=== PATIENT | female | born 1950 | race Caucasian/White ===

== ENCOUNTER 2021-07-21 12:32 | Emergency (ER) | payer MEDICARE, OTHER ==
--- NOTE | 2021-07-21 14:02 | Ultrasound Report ---
PROCEDURE: Duplex Ext Veins Left INDICATIONS: LLE swelling, pain, h/o DVT TECHNIQUE: Real-time imaging, as well as color and pulse Doppler interrogation, were performed of the lower extr emity deep veins from the inguinal ligament to the popliteal fossa. COMPARISON: None. FINDINGS: The deep veins are normally compressible, and free of intraluminal thrombus. Color and pu lse Doppler demonstrate normal phasic intraluminal flow. There is normal augmentation response to di stal compression maneuver. IMPRESSION: No evidence of deep vein thrombosis involving the left lower extremity. Reviewed by: Yuki Flores MD, PhD on 07/21/2021 2:01 PM PDT Approved by: Yuki Flores MD, PhD on 07/21/2021 2:01 PM PDT Station ID: [id number]
--- NOTE | 2021-07-21 14:56 | ED Physician Documentation ---
PD HPI LOWER EXT INJURY - Stated complaint Stated Complaint: SOA,LEG PX AND SWELLING - Chief complaint Chief Complaint: Ext Problem - History obtained from History obtained from: Patient - History of Present Illness PD HPI LOW EXT INJURY LOCATION: Left, Lower leg, Calf Type of injury: Other (no noted injury. developing redness, swelling areas, with skin sores and weeping. went to walk in and referred to ER for U/S to eval for DVT.). No: Blunt / blow Where injury occurred: Home Timing - onset: How many days ago (several) Timing - duration: Days Timing - details: Gradual onset, Still present Worsened by: Palpating Associated symptoms: Swelling. No: Weakness, Numbness Similar symptoms before: Diagnosis (prior history of DVTs but did not have skin sores with that.) Recently seen: Clinic (did go to walk in today but referred to ER.) Review of Systems Constitutional: denies: Fever, Chills Nose: denies: Rhinorrhea / runny nose, Congestion Throat: denies: Sore throat Cardiac: denies: Chest pain / pressure Respiratory: denies: Dyspnea, Cough Skin: reports: Rash, Lesions PD PAST MEDICAL HISTORY - Past Medical History Cardiovascular: Hypertension, Deep vein thrombosis Respiratory: None Neuro: None Endocrine/Autoimmune: None - Present Medications Home Medications: Ambulatory Orders Medication Instructions Recorded Confirmed Albuterol Sulfate [Proair Hfa 1 - 2 puffs INH Q4H PRN 07/21/21 07/21/21 Inhaler] Bupropion HCl [Wellbutrin Xl] 300 mg PO DAILY 07/21/21 07/21/21 Chlorhexidine Gluconate [Hibiclens] 15 ml TP DAILY #236 ml 07/21/21 Doxycycline Hyclate 100 mg PO BID 7 Days #14 cap 07/21/21 Fluticasone/Salmeterol [Advair 1 each IH BID 07/21/21 07/21/21 250-50 Diskus] Furosemide [Lasix] 20 mg PO DAILY PRN 07/21/21 07/21/21 metFORMIN [Glucophage] 500 mg PO BIDWM 07/21/21 07/21/21 - Allergies Allergies/Adverse Reactions: Allergies Allergy/AdvReac Type Severity Reaction Status Date / Time No Known Drug Allergies Allergy Verified 07/21/21 12:43 PD ED PE NORMAL - Vitals Vital signs reviewed: Yes - General General: Alert and oriented X 3, No acute distress, Well developed/nourished - Cardiac Cardiac: RRR, No murmur - Respiratory Respiratory: Clear bilaterally - Derm Derm: Normal color, Warm and dry - Extremities Extremities: Other (left lower leg, mainly calf area but some laterally, with patches of red skin, with central small superficial ulcerations and some crusting, but not purulence per se. Couple of early blistera appearing spots. ) - Neuro Neuro: Alert and oriented X 3, No motor deficit, Normal speech Results - Vitals Vitals: Oxygen O2 Source Room air - Rads (name of study) venous duplex leg Radiology: Prelim report reviewed (no DVT), See rad report PD MEDICAL DECISION MAKING - ED course Complexity details: considered differential (patches of redness with superficial skin breakdown and mild crusting. No purulence per se. couple of small early blister appearing lesions. ), d/w patient Departure - Departure Disposition: 01 Home, Self Care Clinical Impression: Leg edema, left, Impetigo bullosa Condition: Stable Record reviewed to determine appropriate education?: Yes Follow-Up: Katiana Mustafa MD [Primary Care Provider] - Prescriptions: Doxycycline Hyclate 100 mg PO BID 7 Days #14 cap Chlorhexidine Gluconate [Hibiclens] 15 ml TP DAILY #236 ml Comments: Your ultrasound was negative without any blood clots seen. The scan sores and weeping look likely consistent with impetigo staph infection. I would treat it with chlorhexidine antiseptic wash daily with your showering or washing. Also doxycycline antibiotic twice daily for the next week. Resume your diuretic to help with the edema. Use an Otoniel wrap to help with the swelling until you are able to use your compression socks again as the sores heal. Recheck if not improving over the next several days to week. I transmitted your prescription to [facility] in [place]. Discharge Date/Time: 07/21/21 16:18
[2021-07-21] MEDS ORDERED: ACETAMINOPHEN 325 MG TABLET PO STA (15:13)
[2021-07-21] MEDS ORDERED: DOXYCYCLINE 100 MG TABLET PO STA (15:13)
[2021-07-21 16:16] VITALS: BP 138/74
== END 2021-07-21 16:18 | disposition home or self-care (01) ==
LOC: ED 12:32
DX: L01.03 Bullous impetigo (principal); R60.9 Edema, unspecified; I10 Essential (primary) hypertension; Z86.718 Personal history of other venous thrombosis and embolism
CPT/HCPCS: 93971; 99282; 99284; A9270

== ENCOUNTER 2021-08-18 12:20 | Outpatient (CLI) | payer MEDICARE, OTHER ==
[2021-08-18 17:50] LABS: BASOPHILS % (AUTO) 0.5 %; EOSINOPHILS # (AUTO) 0.2 10^3/uL (0.0-0.7); EOSINOPHILS % (AUTO) 2.1 %; HCT - HEMATOCRIT 40.6 % (37.0-47.0); HGB - HEMOGLOBIN 12.2 g/dL (12.0-16.0); LYMPHOCYTES # (AUTO) 1.6 10^3/uL (1.5-3.5); LYMPHOCYTES % (AUTO) 18.3 %; MEAN CORPUSCULAR HEMOGLOBIN 26.7 pg (27.0-31.0); MEAN CORPUSCULAR VOLUME 88.8 fL (81.0-99.0); MEAN PLATELET VOLUME 11.6 fL (7.9-10.8); MONOCYTES # (AUTO) 0.8 10^3/uL (0.0-1.0); MONOCYTES % (AUTO) 9.2 %; NEUTROPHILS # (AUTO) 5.9 10^3/uL (1.5-6.6); NEUTROPHILS % (AUTO) 69.7 %; PLT - PLATELET COUNT 172 10^3/uL (130-450); RED BLOOD COUNT 4.57 10^6/uL (4.20-5.40); RED CELL DISTRIBUTION WIDTH 14.7 % (12.0-15.0); WHITE BLOOD COUNT 8.5 x10^3/uL (4.8-10.8)
[2021-08-18 18:05] LABS: ALBUMIN/GLOBULIN RATIO 1.1 (1.0-2.2); ALKALINE PHOSPHATASE 62 IU/L (42-121); ALT ALANINE AMINOTRANSFERASE 19 IU/L (10-60); AST ASPARTATE AMINOTRANSFERASE 19 IU/L (10-42); BILIRUBIN,TOTAL 0.6 mg/dL (0.2-1.0); BUN - BLOOD UREA NITROGEN 19 mg/dL (6-20); CALCIUM 9.1 mg/dL (8.5-10.3); CARBON DIOXIDE - CO2 34 mmol/L (21-32); CHLORIDE 96 mmol/L (101-111); CHOL/HDL RATIO 3.7 (<4.4); CHOLESTEROL 207 mg/dL; CREATININE 0.6 mg/dL (0.4-1.0); GFR - MDRD 99 (>89); GLUCOSE 170 mg/dL (70-100); HDL CHOLESTEROL 56 mg/dL; LDL CHOLESTEROL,CALCULATED 123 mg/dL; LDL/HDL RATIO 2.2 (<4.4); MAGNESIUM 1.7 mg/dL (1.7-2.8); POTASSIUM 3.9 mmol/L (3.5-5.0); SODIUM 139 mmol/L (135-145); TOTAL PROTEIN 7.7 g/dL (6.7-8.2); TRIGLYCERIDES 138 mg/dL; VLDL CHOLESTEROL 28 mg/dL
[2021-08-18 18:18] LABS: THYROID STIMULATING HORMONE 1.36 uIU/mL (0.34-5.60)
[2021-08-18 19:59] LABS: ESTIMATED AVERAGE GLUCOSE 154 mg/dL (70-100)
== END 2021-08-18 12:21 | disposition home or self-care (01) ==
LOC: LAB.N 12:20
PROVIDERS: ATTEND Nurse Practitioner Family
DX: E11.65 Type 2 diabetes mellitus with hyperglycemia (principal); R03.0 Elevated blood-pressure reading, without diagnosis of hypertension; E55.9 Vitamin D deficiency, unspecified
CPT/HCPCS: 36415; 80053; 80061; 82306; 83036; 83721; 83735; 84443; 85025

== ENCOUNTER 2021-10-06 09:18 | Outpatient (CLI) | payer MEDICARE, OTHER | END 2021-10-06 09:19 | disposition home or self-care (01) | LOC: DI 09:18 | PROVIDERS: ATTEND Nurse Practitioner Family | DX: R06.09 Other forms of dyspnea (principal); I49.9 Cardiac arrhythmia, unspecified; I11.9 Hypertensive heart disease without heart failure; I49.1 Atrial premature depolarization | CPT/HCPCS: 93306 ==

== ENCOUNTER 2022-06-01 12:01 | Emergency (ER) | payer MEDICARE, OTHER ==
[2022-06-01 12:16] VITALS: BP 151/77
--- NOTE | 2022-06-01 13:37 | Ultrasound Report ---
PROCEDURE: Duplex Ext Veins Left INDICATIONS: LLE swelling TECHNIQUE: Real-time imaging, as well as color and pulse Doppler interrogation, were performed of the lower extr emity deep veins from the inguinal ligament to the popliteal fossa. COMPARISON: None. FINDINGS: The deep veins are normally compressible, and free of intraluminal thrombus. Color and pu lse Doppler demonstrate normal phasic intraluminal flow. There is normal augmentation response to di stal compression maneuver. IMPRESSION: No evidence of DVT in visualized left lower extremity veins. Reviewed by: Jayjay Jackman MD on 06/01/2022 1:36 PM PST Approved by: Jayjay Jackman MD on 06/01/2022 1:36 PM PST Station ID: [id number]
--- NOTE | 2022-06-01 13:45 | ED Physician Documentation ---
History of Present Illness - Stated complaint Stated Complaint: LFT LEG PX - Chief complaint Chief Complaint: Ext Problem - History obtained from History obtained from: Patient - History of Present Illness Timing: How many days ago (2) - Additonal information Additional information: 71-year-old Miranda Barger has a history of type 2 diabetes hypertension and peripheral venous stasis disease with chronic lymphedema. She has chronic postinflammatory hyperpigmentation of both lower extremities. She has a history of prior DVT. She has a history of a prior fracture of her left ankle which was surgically repaired and she has a drain wound over that ankle. She has had a bout of cellulitis recently and this appears to have improved or resolved and she is here today because she has some pain in the posterior aspect back of her calf over a specific area. She is worried about the potential of DVT or infection in the skin. She has been taking keflex as the wound on the ankle began to drain and this has improved. Review of Systems Constitutional: denies: Fever Nose: denies: Congestion Respiratory: denies: Cough GI: denies: Abdominal Pain, Vomiting, Diarrhea Musculoskeletal: reports: Extremity pain, Extremity swelling. 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 : None HEENT: None Psych: Depression Musculoskeletal: Fatigue - Past Surgical History Past Surgical History: Yes General: Cholecystectomy Ortho: Other /COATING MACHINE OPERATOR HELPER: section, Hysterectomy Cardiovascular: Other - Present Medications Home Medications: Ambulatory Orders Medication Instructions Recorded Confirmed Bupropion HCl [Wellbutrin Xl] 300 mg PO DAILY 07/21/21 10/27/21 Fluticasone/Salmeterol [Advair 1 each IH BID 07/21/21 09/01/21 250-50 Diskus] Furosemide [Lasix] 20 mg PO DAILY PRN 07/21/21 10/27/21 metFORMIN [Glucophage] 500 mg PO BIDWM 07/21/21 10/27/21 Biotin 1 tab PO DAILY 09/01/21 10/27/21 Cholecalciferol (Vitamin D3) 1 cap PO DAILY 09/01/21 10/27/21 [Vitamin D3] Tumeric/Ging/[place]/Oreg/Capryl 1 each PO DAILY 09/01/21 10/27/21 [Candicidal Capsule] Rosuvastatin Calcium [Crestor] 1 tab PO DAILY 12/08/21 12/08/21 - Allergies Allergies/Adverse Reactions: Allergies Allergy/AdvReac Type Severity Reaction Status Date / Time No Known Drug Allergies Allergy Verified 06/01/22 12:16 - Social History Does the pt smoke?: No Smoking Status: Never smoker Does the pt drink ETOH?: No Does the pt have substance abuse?: Yes - Immunizations Immunizations are current?: Yes PD ED PE NORMAL - Vitals Vital signs reviewed: Yes (hypertensive ) - General General: Alert and oriented X 3, No acute distress, Well developed/nourished - HEENT HEENT: Atraumatic, PERRL, EOMI - Respiratory Respiratory: No respiratory distress - Derm Derm: Normal color, Warm and dry, No rash - Extremities Extremities: Other (Bilaterally there is edema to the lower extremities that is nonpitting she does have postinflammatory hyperpigmentation worse on the left than the right. 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 She has a bandage over the medial aspect of her ankle this is removed to reveal an area of skin without acute inflammation that appears to be healing. Over the posterior calf there is an area 1-1/2 cm of skin breakdown without drainage or surrounding erythema. The area is sensitive to touch. Results - Vitals Vitals: Vital Signs - 24 hr 06/01/22 12:08 Temperature 36 C L Heart Rate 68 Respiratory 18 Rate Blood Pressure 151/77 H O2 Saturation 93 Oxygen O2 Source Room air - Labs Labs: Microbiology 06/01/22 13:30 Wound Culture - Preliminary Leg - Left - Rads (name of study) LLE venous duplex Radiology: Prelim report reviewed (No evidence of DVT in the visualized left lower extremity veins.), EMP read indepedently, See rad report PD Medical Decision Making - ED course Complexity details: reviewed old records, reviewed results, re-evaluated patient, considered differential, d/w patient ED course: 71-year-old Miranda Barger has a new area on the posterior aspect of her calf that is specifically tender and has some skin breakdown. There is not a ready explanation of how this may have occurred but it does not look infected. The areas the patient was indicating appeared infected appear improved at this time. There is no surrounding erythema. I do not believe there is any failure of the patient's outpatient use of Keflex for this. We did do a culture of the area and we obtained a venous duplex exam again demonstrated no evidence of deep venous thrombosis. Departure - Departure Disposition: 01 Home, Self Care Clinical Impression: Chronic venous insufficiency Non-pressure ulcer of left lower extremity Qualifiers: Non-pressure ulcer stage: limited to breakdown of skin Qualified Code(s): L97.921 - Non-pressure chronic ulcer of unspecified part of left lower leg limited to breakdown of skin Condition: Stable Instructions: Chronic Venous Insufficiency Ulcer, ED Ulcer Venous Leg Follow-Up: Jodi Caldera ARNP [Primary Care Provider] - Comments: Miranda, today it looks like there is a new ulceration on the back of your calf. I do not see any sign of acute infection with this but a culture has been obtained. Follow-up with the wound clinic as planned. Today there is no evidence of deep venous thrombosis. Discharge Date/Time: 06/01/22 13:51
== END 2022-06-01 13:51 | disposition home or self-care (01) ==
LOC: ED 12:01
DX: I87.2 Venous insufficiency (chronic) (peripheral) (principal); L97.921 Non-pressure chronic ulcer of unspecified part of left lower leg limited to breakdown of skin; I10 Essential (primary) hypertension; Z86.718 Personal history of other venous thrombosis and embolism; Z79.899 Other long term (current) drug therapy; Z79.84 Long term (current) use of oral hypoglycemic drugs; Z79.51 Long term (current) use of inhaled steroids
CPT/HCPCS: 87070; 87077; 87181; 87205; 99284

== ENCOUNTER 2022-06-18 12:45 | Outpatient (CLI) | payer MEDICARE, OTHER ==
[2022-06-18 17:47] LABS: BASOPHILS # (AUTO) 0.1 10^3/uL (0.0-0.1); BASOPHILS % (AUTO) 0.6 %; EOSINOPHILS # (AUTO) 0.2 10^3/uL (0.0-0.7); EOSINOPHILS % (AUTO) 2.2 %; HCT - HEMATOCRIT 41.8 % (37.0-47.0); HGB - HEMOGLOBIN 12.1 g/dL (12.0-16.0); LYMPHOCYTES % (AUTO) 22.9 %; MEAN CORPUSCULAR HEMOGLOBIN 26.2 pg (27.0-31.0); MEAN CORPUSCULAR HGB CONC 28.9 g/dL (32.0-36.0); MEAN CORPUSCULAR VOLUME 90.7 fL (81.0-99.0); MEAN PLATELET VOLUME 10.9 fL (7.9-10.8); MONOCYTES # (AUTO) 0.8 10^3/uL (0.0-1.0); MONOCYTES % (AUTO) 9.2 %; NEUTROPHILS # (AUTO) 5.5 10^3/uL (1.5-6.6); NEUTROPHILS % (AUTO) 64.7 %; PLT - PLATELET COUNT 179 10^3/uL (130-450); RED BLOOD COUNT 4.61 10^6/uL (4.20-5.40); RED CELL DISTRIBUTION WIDTH 14.5 % (12.0-15.0); WHITE BLOOD COUNT 8.6 x10^3/uL (4.8-10.8)
[2022-06-18 17:53] LABS: ALBUMIN 3.9 g/dL (3.2-5.5); ALKALINE PHOSPHATASE 66 IU/L (42-121); ALT ALANINE AMINOTRANSFERASE 15 IU/L (10-60); AST ASPARTATE AMINOTRANSFERASE 16 IU/L (10-42); BILIRUBIN,TOTAL 0.5 mg/dL (0.2-1.0); BUN - BLOOD UREA NITROGEN 14 mg/dL (6-20); CALCIUM 9.5 mg/dL (8.5-10.3); CARBON DIOXIDE - CO2 36 mmol/L (21-32); CHLORIDE 98 mmol/L (101-111); CHOLESTEROL 170 mg/dL; CREATININE 0.5 mg/dL (0.4-1.0); GFR - MDRD 122 (>89); GLUCOSE 110 mg/dL (70-100); HDL CHOLESTEROL 57 mg/dL; LDL CHOLESTEROL,CALCULATED 104 mg/dL; LDL/HDL RATIO 1.8 (<4.4); POTASSIUM 4.7 mmol/L (3.5-5.0); SODIUM 142 mmol/L (135-145); TOTAL PROTEIN 7.9 g/dL (6.7-8.2); TRIGLYCERIDES 47 mg/dL; VLDL CHOLESTEROL 9 mg/dL
[2022-06-18 18:02] LABS: THYROID STIMULATING HORMONE 1.37 uIU/mL (0.34-5.60)
[2022-06-18 20:08] LABS: ESTIMATED AVERAGE GLUCOSE 151 mg/dL (70-100); HEMOGLOBIN A1c% 6.9 % (4.27-6.07)
== END 2022-06-18 12:46 | disposition home or self-care (01) ==
LOC: LAB.N 12:45
PROVIDERS: ATTEND Nurse Practitioner Family
DX: E78.5 Hyperlipidemia, unspecified (principal); E11.65 Type 2 diabetes mellitus with hyperglycemia; Z79.899 Other long term (current) drug therapy
CPT/HCPCS: 36415; 80053; 80061; 83036; 83721; 84443; 85025

== ENCOUNTER 2022-07-21 17:20 | Outpatient (CLI) | payer MEDICARE, OTHER ==
[2022-07-21 17:53] LABS: ABG HCO3 32.2 mmol/L (22.0-26.0); ABG PCO2 50 mmHg (34-45); ABG PH 7.43 (7.35-7.45); ABG PO2 61 mmHg (80-100)
[2022-07-21 17:54] LABS: ABG BASE EXCESS 6.6 mmol/L (-2.0-3.0); ABG OXYGEN SATURATION 92 % (94-98); ABG TCO2 33.7 MMOL/L (21.0-29.0); ALLEN TEST POSITIVE
== END 2022-07-21 17:21 | disposition home or self-care (01) ==
LOC: RT 17:20
PROVIDERS: ATTEND Internal Medicine Pulmonary Disease
DX: I27.20 Pulmonary hypertension, unspecified (principal); E66.2 Morbid (severe) obesity with alveolar hypoventilation; R60.0 Localized edema
CPT/HCPCS: 36600; 82803

== ENCOUNTER 2022-08-03 22:43 | Outpatient (CLI) | payer MEDICARE, OTHER ==
--- NOTE | 2022-08-04 16:11 | Ultrasound Report ---
PROCEDURE: Ext Limited Non Vascular INDICATIONS: SWELLING OF ARM TECHNIQUE: Real-time scanning was performed of the right, with image documentation. COMPARISON: None. FINDINGS: Sonographic images of the proximal right upper extremity demonstrate no mass lesion, focal fluid collection or area of architectural distortion within the area of palpable concern IMPRESSION: Unremarkable exam. If concern persists, CT or MRI is recommended. Reviewed by: Adelaida Becker MD on 08/04/2022 4:09 PM PDT Approved by: Adelaida Becker MD on 08/04/2022 4:09 PM PDT Station ID: [id number]
== END 2022-08-03 22:44 | disposition home or self-care (01) ==
LOC: DI 22:43
PROVIDERS: ATTEND Nurse Practitioner Family
DX: R22.30 Localized swelling, mass and lump, unspecified upper limb (principal)

== ENCOUNTER 2022-12-07 19:24 | Inpatient (IN) | payer MEDICARE, OTHER ==
--- NOTE | 2022-12-07 20:21 | ED Physician Documentation ---
PD HPI DYSPNEA - Stated complaint Stated Complaint: SOA - Chief complaint Chief Complaint: Resp - History obtained from History obtained from: Patient - Additional information Additional information: HPI from patient. Patient complains of dyspnea, "my sats were down to the 50s" (per patient). Patient measures her pulse ox/saturations on a regular basis, but due to dyspnea since this morning, she was monitoring more closely today. She says that, on an average day, her pulse ox tends to be 89 to 91% on room air. She does use 3 L nasal cannula oxygen but only at night when asleep. She is not certain if she has a specific pulmonary diagnosis; diagnosis of COPD has been entertained but not clearly made. She says she had surgery in childhood for pectus excavatum, and has had intermittent respiratory problems since then. Dyspnea worse with exertion She has history of DVTs, both provoked and unprovoked. She has recessive Leiden factor V deficiency. Patient took a home COVID test earlier today and result was negative. She says she takes Lasix as needed, prescribed as 3 times a week as needed, but has been avoiding this of late. Only on discussion of review of systems did other symptoms come up. When asked if she has been having any chest pain, she says she has been having some mild, intermittent right-sided pleuritic chest pain. She has bilateral lower extremity edema which is chronic. Also notes few weeks of intermittent right flank pain that radiates to her right lower abdomen and right groin, "UTI symptoms" (per patient), "off-and-on" over past 1 to 2 weeks. The UTI symptoms are dysuria, frequency, urgency, and a strong odor to the urine. Review of Systems Constitutional: denies: Fever, Chills, Sweats Cardiac: reports: Chest pain / pressure, Pedal edema. denies: Palpitations Respiratory: reports: Dyspnea, Wheezing. denies: Cough, Hemoptysis GI: reports: Abdominal Pain. denies: Nausea, Vomiting : reports: Dysuria, Frequency. 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 : None HEENT: None Psych: Depression Musculoskeletal: Fatigue - Past Surgical History Past Surgical History: Yes General: Cholecystectomy Ortho: Other /SOFTWARE RELEASE ENGINEER: section, Hysterectomy Cardiovascular: Other - Present Medications Home Medications: Ambulatory Orders Medication Instructions Recorded Confirmed Fluticasone/Salmeterol [Advair 1 each IH BID 07/21/21 08/23/22 250-50 Diskus] Furosemide [Lasix] 20 mg PO DAILY PRN 07/21/21 08/23/22 buPROPion HCL [Wellbutrin Xl] 300 mg PO DAILY 07/21/21 08/23/22 metFORMIN [Glucophage] 500 mg PO DAILY 07/21/21 08/23/22 Biotin 1 tab PO DAILY 09/01/21 08/23/22 Tumeric/Ging/[place]/Oreg/Capryl 1 each PO DAILY 09/01/21 08/23/22 [Candicidal Capsule] Rosuvastatin Calcium [Crestor] 1 tab PO DAILY 12/08/21 08/23/22 metFORMIN [Glucophage] 1,000 mg PO QPM 08/23/22 08/23/22 - Allergies Allergies/Adverse Reactions: Allergies Allergy/AdvReac Type Severity Reaction Status Date / Time No Known Drug Allergies Allergy Verified 12/07/22 19:46 - Social History Does the pt smoke?: No Smoking Status: Never smoker Does the pt drink ETOH?: No Does the pt have substance abuse?: Yes - Immunizations Immunizations are current?: Yes PD ED PE NORMAL - Vitals Vital signs reviewed: Yes - General General: Alert and oriented X 3, No acute distress, Well developed/nourished - Neck Neck: Supple, no meningeal sign - Cardiac Cardiac: RRR, No murmur - Respiratory Respiratory: No respiratory distress - Abdomen Abdomen: Soft, Non tender, Non distended - Back Back: No CVA TTP - Derm Derm: Normal color, Warm and dry PD ED PE EXPANDED - Respiratory Respiratory: Wheezing (bilateral end-expiratory wheeze; bilateral crackles more pronounced in mid/upper lung beltran than bases), Decreased breath sounds - Extremities Extremities: Pedal edema bilateral (3+ bilateral nonpitting edema) Results - Vitals Vitals: Vital Signs - 24 hr 12/07/22 12/07/22 12/07/22 19:28 19:45 20:00 Temperature 36.6 C Heart Rate 96 87 88 Respiratory 18 20 24 Rate Blood Pressure 122/106 H 158/92 H O2 Saturation 75 L 94 94 If not protocol 5 5 : Oxygen Flow, liters/minute 12/07/22 12/07/22 12/07/22 20:30 20:41 21:00 Temperature Heart Rate 85 82 80 Respiratory 23 28 H 21 Rate Blood Pressure 165/96 H 165/96 H 162/94 H O2 Saturation 97 95 94 If not protocol 5 5 : Oxygen Flow, liters/minute 12/07/22 12/07/22 12/07/22 21:10 21:14 21:30 Temperature Heart Rate 85 79 Respiratory 20 26 H Rate Blood Pressure 163/97 H O2 Saturation 95 94 If not protocol 4 3.5 4 : Oxygen Flow, liters/minute 12/07/22 12/07/22 12/07/22 21:32 21:33 22:00 Temperature Heart Rate 81 Respiratory 21 Rate Blood Pressure 162/82 H O2 Saturation 84 L 99 95 If not protocol 4 4 4 : Oxygen Flow, liters/minute 12/07/22 12/07/22 12/08/22 23:40 23:47 00:00 Temperature Heart Rate 74 73 Respiratory 18 20 18 Rate Blood Pressure 148/80 H 148/80 H O2 Saturation 100 99 If not protocol 4 : Oxygen Flow, liters/minute 12/08/22 12/08/22 12/08/22 00:30 01:00 02:44 Temperature Heart Rate 81 77 64 Respiratory 22 16 16 Rate Blood Pressure 119/82 H 125/78 135/82 H O2 Saturation 95 93 98 If not protocol 5 3.5 : Oxygen Flow, liters/minute Oxygen O2 Source Nasal cannula Oxygen Flow Rate 5 - EKG (time done) No standard instances EKG releavant findings:: EKG personally interpreted by author of this note. Relevant findings are: Rate: Rate (enter#) (83) Rhythm: NSR [place]: Normal QRS: Normal Ischemia: Normal ST segments, T wave inversion (III, flat aVF) Other comments: Other comments (PAC) - Labs Labs: Microbiology 12/07/22 21:32 Urine Culture - Preliminary Urine,Clean Catch Laboratory Tests 12/07/22 12/07/22 12/07/22 20:59 20:59 20:59 WBC 8.7 RBC 4.44 Hgb 11.9 L Hct 41.9 MCV 94.4 MCH 26.8 L MCHC 28.4 L RDW 15.9 H Plt Count 206 MPV 9.0 Neut # (Auto) 6.5 Lymph # (Auto) 1.3 L [place] # (Auto) 0.7 Eos # (Auto) 0.2 Baso # (Auto) 0.0 Absolute Nucleated RBC 0.00 Nucleated RBC % 0.0 Manual Slide Review Indicated Platelet Estimate NORMAL (130-450,000) Platelet Morphology NORMAL APPEARANCE RBC Morph Micro Appear 1+ HYPOCHROMASIA Sodium 140 Potassium 4.1 Chloride 96 L Carbon Dioxide 36 H Anion Gap 8.0 BUN 15 Creatinine 0.6 Estimated GFR (MDRD) 99 Glucose 113 H Calcium 8.3 L Total Bilirubin 0.5 AST 16 ALT 16 Alkaline Phosphatase 67 Troponin I High Sens 24.2 H* B-Natriuretic Peptide 123 H Total Protein 6.9 Albumin 3.7 Globulin 3.2 Albumin/Globulin Ratio 1.2 Lipase 25 Urine Color Urine Clarity Urine pH Ur Specific Hines Urine Protein Urine Glucose (UA) Urine Ketones Urine Occult Blood Urine Nitrite Urine Bilirubin Urine Urobilinogen Ur Leukocyte Esterase Urine RBC Urine WBC Ur Squamous Epith Cells Urine Bacteria Ur Microscopic Review Urine Culture Comments Nasal Adenovirus (PCR) Nasal B. parapertussis DNA (PCR) Nasal Coronavir 229E PCR Nasal Coronavir HKU1 PCR Nasal Coronavir NL63 PCR Nasal Coronavir OC43 PCR Nasal Enterovir/Rhinovir PCR Nasal Influenza B PCR Nasal Influenza A PCR Nasal Parainfluen 1 PCR Nasal Parainfluen 2 PCR Nasal Parainfluen 3 PCR Nasal Parainfluen 4 PCR Nasal RSV (PCR) Nasal B.pertussis DNA PCR Nasal C.pneumoniae (PCR) [place] Human Metapneumo PCR Nasal M.pneumoniae (PCR) Nasal SARS-CoV-2 (PCR) 12/07/22 12/07/22 12/07/22 20:59 21:32 23:55 WBC RBC Hgb Hct MCV MCH MCHC RDW Plt Count MPV Neut # (Auto) Lymph # (Auto) [place] # (Auto) Eos # (Auto) Baso # (Auto) Absolute Nucleated RBC Nucleated RBC % Manual Slide Review Platelet Estimate Platelet Morphology RBC Morph Micro Appear Sodium Potassium Chloride Carbon Dioxide Anion Gap BUN Creatinine Estimated GFR (MDRD) Glucose Calcium Total Bilirubin AST ALT Alkaline Phosphatase Troponin I High Sens 21.8 H* B-Natriuretic Peptide Total Protein Albumin Globulin Albumin/Globulin Ratio Lipase Urine Color YELLOW Urine Clarity CLOUDY Urine pH 5.5 Ur Specific [place] >=1.030 H Urine Protein 30 H Urine Glucose (UA) NEGATIVE Urine Ketones NEGATIVE Urine Occult Blood MODERATE H Urine Nitrite POSITIVE H Urine Bilirubin NEGATIVE Urine Urobilinogen 0.2 (NORMAL) Ur Leukocyte Esterase SMALL H Urine RBC 11-25 H Urine WBC >25 H Ur Squamous Epith Cells FEW Squamous Urine Bacteria Many H Ur Microscopic Review INDICATED Urine Culture Comments INDICATED Nasal Adenovirus (PCR) NOT DETECTED Nasal B. parapertussis DNA (PCR) NOT DETECTED Nasal Coronavir 229E PCR NOT DETECTED Nasal Coronavir HKU1 PCR NOT DETECTED Nasal Coronavir NL63 PCR NOT DETECTED Nasal Coronavir OC43 PCR NOT DETECTED Nasal Enterovir/Rhinovir PCR NOT DETECTED Nasal Influenza B PCR NOT DETECTED Nasal Influenza A PCR NOT DETECTED Nasal Parainfluen 1 PCR NOT DETECTED Nasal Parainfluen 2 PCR NOT DETECTED Nasal Parainfluen 3 PCR NOT DETECTED Nasal Parainfluen 4 PCR NOT DETECTED Nasal RSV (PCR) NOT DETECTED Nasal B.pertussis DNA PCR NOT DETECTED Nasal C.pneumoniae (PCR) NOT DETECTED [place] Human Metapneumo PCR NOT DETECTED Nasal M.pneumoniae (PCR) NOT DETECTED Nasal SARS-CoV-2 (PCR) NOT DETECTED - Rads (name of study) CTA chest Relevant Findings:: Prelim report reviewed, See rad report PD Medical Decision Making - ED course Complexity details: reviewed results, re-evaluated patient, considered differential, d/w patient ED course: In triage, patient's pulse ox (room air) was 77% and ED RN tells me she was visibly dyspneic. unremarkable CBC (hgb 11.9), ER abdominal panel. hs-cTn mildly elevated (24.2) with decrease on repeat (21.8). No concerning EKG findings. Respiratory panel negative for viruses tested including COVID, influenza. UA result is strongly s/o UTI for which she is given 1 gram IV rocephin. CTA chest negative for PE but notable findings (per radiologist's reading) include moderate pulmonary edema, small right pleural effusion, and incidental finding of bilateral (L>R) prominent axillary nodes. She is given duoneb and 60mg IV lasix early in stay. During ED stay, she had significant UO (approximately 1,500 cc). She reported feeling improved after diuresis and the duoneb. Because she was starting to get tired , 3 liters [place] oxygen placed as she says she uses HS, and this maintained saturations in lower 90s. However, simply having patient use bedside commode resulted in rapid decrease to upper 60s, pulse ox with good pleth, gradually improved back to low 90s once back in bed. After several hours in ED , I had ED RN stand patient at bedside with oxygen still on at 3 liters and then to have patient take a few steps next to the bed with oxygen removed; this resulted in rapid desaturation to 72% and patient had significant dyspnea (this is documented under "patient care" by ED RN at 03:48). Patient says the desaturation and the dyspnea are far from her baseline and thus, at this point, I contacted telehealth for admit to [facility] for further observation, testing, and treatment as indicated. Departure - Departure Disposition: [facility] DC/Xfer Clinical Impression: Lymphedema, Hypoxia Pulmonary edema Qualifiers: Chronicity: acute Qualified Code(s): J81.0 - Acute pulmonary edema Dyspnea Qualifiers: Dyspnea type: shortness of breath Qualified Code(s): R06.02 - Shortness of breath; R06.00 - Dyspnea, unspecified; R06.01 - Orthopnea Condition: Stable Discharge Date/Time: 12/08/22 05:40
[2022-12-07] MEDS ORDERED: IPRATROPIUM/ALBUTEROL 3 ML NEB INH STA (20:48)
[2022-12-07 21:14] LABS: BASOPHILS % (AUTO) 0.5 %; EOSINOPHILS # (AUTO) 0.2 10^3/uL (0.0-0.7); EOSINOPHILS % (AUTO) 1.7 %; HCT - HEMATOCRIT 41.9 % (37.0-47.0); HGB - HEMOGLOBIN 11.9 g/dL (12.0-16.0); LYMPHOCYTES # (AUTO) 1.3 10^3/uL (1.5-3.5); LYMPHOCYTES % (AUTO) 14.4 %; MEAN CORPUSCULAR HEMOGLOBIN 26.8 pg (27.0-31.0); MEAN CORPUSCULAR HGB CONC 28.4 g/dL (32.0-36.0); MEAN CORPUSCULAR VOLUME 94.4 fL (81.0-99.0); MONOCYTES # (AUTO) 0.7 10^3/uL (0.0-1.0); MONOCYTES % (AUTO) 8.4 %; NEUTROPHILS # (AUTO) 6.5 10^3/uL (1.5-6.6); NEUTROPHILS % (AUTO) 74.8 %; PLT - PLATELET COUNT 206 10^3/uL (130-450); RED BLOOD COUNT 4.44 10^6/uL (4.20-5.40); RED CELL DISTRIBUTION WIDTH 15.9 % (12.0-15.0); WHITE BLOOD COUNT 8.7 x10^3/uL (4.8-10.8)
[2022-12-07 21:26] LABS: ALBUMIN 3.7 g/dL (3.2-5.5); ALBUMIN/GLOBULIN RATIO 1.2 (1.0-2.2); BILIRUBIN,TOTAL 0.5 mg/dL (0.2-1.0); CALCIUM 8.3 mg/dL (8.5-10.3); CREATININE 0.6 mg/dL (0.4-1.0); POTASSIUM 4.1 mmol/L (3.5-5.0); TOTAL PROTEIN 6.9 g/dL (6.7-8.2)
[2022-12-07 21:34] LABS: PLATELET ESTIMATE, MANUAL NORMAL (130-450,000) (NORMAL); PLATELET MORPHOLOGY NORMAL APPEARANCE (NORMAL); SLIDE REVIEW? Indicated
[2022-12-07 21:37] LABS: BILIRUBIN,URINE NEGATIVE (NEGATIVE); GLUCOSE, URINE (UA) NEGATIVE (NEGATIVE); KETONES,URINE (UA) NEGATIVE (NEGATIVE); LEUKOCYTE ESTERASE, URINE SMALL (NEGATIVE); NITRITE,URINE POSITIVE (NEGATIVE); OCCULT BLOOD,URINE MODERATE (NEGATIVE); PH,URINE 5.5 PH (5.0-7.5); PROTEIN,URINE 30 mg/dL (NEGATIVE); UROBILINOGEN,URINE 0.2 (NORMAL) E.U./dL (NORMAL)
[2022-12-07 21:46] LABS: BACTERIA,URINE Many /HPF (None Seen); CLARITY,URINE CLOUDY (CLEAR); SQUAMOUS EPITHELIAL CELL,UR FEW Squamous (<= Few); WBC,URINE >25 /HPF (0-5)
[2022-12-07 22:03] LABS: CORONAVIRUS 229E-RESP PCR NOT DETECTED; CORONAVIRUS HKU1-RESP PCR NOT DETECTED; CORONAVIRUS NL63-RESP PCR NOT DETECTED; CORONAVIRUS OC43-RESP PCR NOT DETECTED; HUMAN METAPNEUMOVIRUS NOT DETECTED; INFLUENZA A- RESP PCR PANEL NOT DETECTED; RHINOVIRUS/ENTEROVIRUS NOT DETECTED; SARS-CoV-2 -RESP PCR PANEL NOT DETECTED
[2022-12-07 22:04] LABS: B. PARAPERTUSSIS- RESP PCR PAN NOT DETECTED; B. PERTUSSIS- RESP PCR PANEL NOT DETECTED; C. PNEUMONIAE- RESP PCR PANEL NOT DETECTED; INFLUENZA B - RESP PCR PANEL NOT DETECTED; M. PNEUMONIAE- RESP PCR PANEL NOT DETECTED; PARAINFLUENZA VIRUS 1 NOT DETECTED; PARAINFLUENZA VIRUS 2 NOT DETECTED; PARAINFLUENZA VIRUS 3 NOT DETECTED; PARAINFLUENZA VIRUS 4 NOT DETECTED; RSV- RESP PCR PANEL NOT DETECTED
[2022-12-07 22:26] LABS: TROPONIN I HIGH SENSITIVITY 24.2 ng/L (2.3-14.8)
--- NOTE | 2022-12-07 23:20 | CT Report ---
PROCEDURE: ANGIO CHEST W/WO INDICATIONS: dyspnea, hypoxia, pleuritic chest pain CONTRAST: Omni 300 100ml TECHNIQUE: After the administration of intravenous contrast, 2 mm axial images were acquired from the pulmonary apices to the posterior costophrenic angles during the arterial phase. In addition, 1 mm lung kernel and 5 mm soft tissue kernel reconstructions were performed. 3-dimensional coronal oblique maximum int ensity projection (MIP) reformats, 8 mm axial MIP, and 5 mm coronal and sagittal MPR reformats were t hen performed through the thorax. For radiation dose reduction, the following was used: automated exp osure control, adjustment of mA and/or kV according to patient size. COMPARISON: None FINDINGS: Image quality: Suboptimal due to motion artifact, particularly in the lung bases. Large vessels: No filling defects within the opacified pulmonary arteries, accounting for motion and contrast timing. No evidence of acute aortic syndrome or aortic aneurysm. Dilated pulmonary arteries . Lungs and pleura: No consolidation. Small right pleural effusion with right basilar atelectasis. Smoo th interstitial thickening and bronchial thickening, with central groundglass. No suspicious pulmonar y nodules which require follow up. Calcified granuloma in the right lower lobe. Mediastinum: Heart size is enlarged. No pericardial effusion. No large vessel abnormality. No mediast inal adenopathy by size criteria. Small hiatal hernia. Chest wall and lower neck: Thyroid is unremarkable. Prominent axillary lymph nodes, left greater than right. No breast mass visualized. Bones: No aggressive osseous abnormality. Upper Abdomen: Unremarkable. IMPRESSION: Suboptimal due to motion artifact, particularly in the lung bases. No clinically significant pulmonar y embolus to the proximal segmental level. Moderate pulmonary edema. Small right pleural effusion. Prominent axillary lymph nodes, left greater than right. Recommend further workup at a diagnostic [facility]. Reviewed by: Shashank Medina on 12/07/2022 11:18 PM PDT Approved by: Shashank Medina on 12/07/2022 11:18 PM PDT Station ID: [id number]
[2022-12-07] MEDS ORDERED: FUROSEMIDE 40 MG/4 ML VIAL IVP STA (23:39)
[2022-12-08] MEDS ORDERED: iohexoL-300 100 ML VIAL IVP ONE (00:39)
[2022-12-08] MEDS ORDERED: cefTRIAXone 1 GM in SODIUM CHLORIDE 0.9% MINIBAG 100 ML IV STA (02:11)
[2022-12-08] MEDS ORDERED: cefTRIAXone 1 GM VIAL ONE (02:38)
[2022-12-08] MEDS ORDERED: ONDANSETRON 4 MG/2 ML VIAL IVP PRN (04:15)
[2022-12-08] MEDS ORDERED: PROMETHAZINE 25 MG/1 ML VIAL IM PRN (04:15)
[2022-12-08] MEDS ORDERED: SODIUM CHLORIDE FLUSH 0.9% 10 ML SYRINGE IVP PRN (04:15)
--- NOTE | 2022-12-08 04:52 | HISTORY & PHYSICAL EXAMINATION ---
Chief Complaint - Chief Complaint Chief Complaint: SOB History of Present Illness - Admitted From Admitted From:: ED - History Obtained From Records Reviewed: Patient, ED staff, and History obtained from: Patient Exam Limitations: Tele medicine - History of Present Illness HPI Comment/Other: 72F c CRISTINE on Bipap with nighttime O2 support who p/w dyspnea with exertion for the past couple of days. Patient noted concurrently worsening swelling in BLE and orthopnea. She states right sided chest pain. No fever. No sore throat. No n/v/d. no dysuria. She mentions not being compliant with her Lasix for her leg swelling. She has not been told of heart failure. she was told that she has right sided heart disease. 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 : reports: None HEENT: reports: None Psych: reports: Depression Musculoskeletal: reports: Fatigue MRSA Hx?: No - Past Surgical History General: reports: Cholecystectomy Ortho: reports: Other /MOTOR COACH OPERATOR: reports: section, Hysterectomy Cardiovascular: reports: Other Meds/Allgy - Home Medications Home Medications: Ambulatory Orders Medication Instructions Recorded Confirmed Fluticasone/Salmeterol [Advair 1 each IH BID 07/21/21 08/23/22 250-50 Diskus] Furosemide [Lasix] 20 mg PO DAILY PRN 07/21/21 08/23/22 buPROPion HCL [Wellbutrin Xl] 300 mg PO DAILY 07/21/21 08/23/22 metFORMIN [Glucophage] 500 mg PO DAILY 07/21/21 08/23/22 Biotin 1 tab PO DAILY 09/01/21 08/23/22 Cholecalciferol (Vitamin D3) 1 cap PO DAILY 09/01/21 08/23/22 [Vitamin D3] Tumeric/Ging/[place]/Oreg/Capryl 1 each PO DAILY 09/01/21 08/23/22 [Candicidal Capsule] Rosuvastatin Calcium [Crestor] 1 tab PO DAILY 12/08/21 08/23/22 metFORMIN [Glucophage] 1,000 mg PO QPM 08/23/22 08/23/22 - Allergies Allergies/Adverse Reactions: Allergies Allergy/AdvReac Type Severity Reaction Status Date / Time No Known Drug Allergies Allergy Verified 12/07/22 19:46 Review of Systems - Other Findings Other Findings: negative unless mentioned differently above Exam - Vital Signs Reviewed Vital Signs: Yes Vital Signs: Vital Signs x48h Pulse Resp BP Pulse Ox O2 Flow Rate 12/08/22 02:44 64 16 135/82 H 98 3.5 12/08/22 01:00 77 16 125/78 93 5 12/08/22 00:30 81 22 119/82 H 95 12/08/22 00:00 73 18 148/80 H 99 12/07/22 23:47 74 20 148/80 H 100 4 12/07/22 23:40 18 12/07/22 22:00 81 21 162/82 H 95 4 12/07/22 21:33 99 4 12/07/22 21:32 84 L 4 12/07/22 21:30 79 26 H 163/97 H 94 4 12/07/22 21:14 95 3.5 12/07/22 21:10 85 20 4 12/07/22 21:00 80 21 162/94 H 94 5 12/07/22 20:41 82 28 H 165/96 H 95 - Physical Exam General Appearance: positive: No acute distress Eyes Bilateral: positive: Normal inspection ENT: positive: ENT inspection nml Neck: positive: Nml inspection Respiratory: positive: Other (diminshed at lung bases) Cardiovascular: positive: Regular rate & rhythm, Systolic murmur Abdomen: positive: Non-tender Skin: positive: Color nml Extremities: positive: Non-tender, Pedal edema Neurologic/Psychiatric: positive: Oriented x3, CN's nml (2-12) Conclusion/Plan - Problem List (1) CHF exacerbation Conclusion/Plan: bilateral pleural effusion and orthopnea are consistent with HF. will continue diuresis. follow cardiac enzymes. followup echo tele. fluid restrict. daily weight and monitoring I & O Qualifiers: Heart failure type: diastolic Qualified Code(s): I50.33 - Acute on chronic diastolic (congestive) heart failure (2) Acute on chronic respiratory failure with hypoxemia Conclusion/Plan: continue O2 support. breathing treatment. Lasix per above for CHF exacerbation. continue bipap when sleeping. (3) Type 2 diabetes mellitus Conclusion/Plan: hold home metformin. manage with SSI. 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 continue bipap with o2 support - Lab Results Fish Bones: 12/07/22 20:59 12/07/22 20:59 - Diagnostic Imaging Results Diagnostic Imaging Results: positive: Final report reviewed Core Measures - Anticipated LOS I expect patient to be DC'd or transferred within 96 hours.: No - Issues Hospital Issues and Management Plan: The patient consented to receive this telemedicine service, which I performed via live two-way audiovisual equipment. The patient is at ([facility]) and I am physically in [facility]. A nurse assisted me in the visit. - DVT/VTE - Prophylaxis VTE/DVT Device ordered at admit?: Yes VTE/DVT Prophylaxis med ordered at admit?: Yes Telemedicine Consult Details - Provider Location & Consult Time Telemedicine consultation conducted via videoconferencing?: Yes List names and roles of persons who participated in consult:: ED staff and patient Telemedicine provider location:: [facility] Time Telemedicine consult began:: 04:18 Time Telemedicine consult completed:: 05:23
[2022-12-08] MEDS: ACETAMINOPHEN 325 MG TABLET PO PRN (05:42)
[2022-12-08] MEDS: buPROPion XL 150 MG TABLET PO SCH (08:36)
[2022-12-08] MEDS: CHOLECALCIFEROL 5,000 UNIT CAPSULE PO SCH (08:36)
[2022-12-08] MEDS: FUROSEMIDE 40 MG/4 ML VIAL IVP SCH (08:36)
[2022-12-08] MEDS: HEPARIN 5,000 UNIT/ML VIAL SUBQ SCH ×2 (08:41→20:08)
[2022-12-08] MEDS: INSULIN LISPRO 300 UNIT/3 ML PEN SUBQ SCH ×4 (08:49→21:21)
[2022-12-08] MEDS: SODIUM CHLORIDE FLUSH 0.9% 10 ML SYRINGE IVP SCH ×2 (08:50→16:18)
[2022-12-08] MEDS ORDERED: SALMETEROL IH SCH (09:00)
[2022-12-08] MEDS ORDERED: NON FORMULARY MED (Bupropion Hcl [Wellbutrin Xl] 300 MG Tab.Er.24h) PO SCH (09:00)
[2022-12-08] MEDS ORDERED: FLUTICASONE IH SCH (09:00)
[2022-12-08] MEDS ORDERED: BIOTIN 5 MG PO SCH (09:00)
[2022-12-08] MEDS ORDERED: ROSUVASTATIN CALCIUM 5 MG PO SCH (09:00)
--- NOTE | 2022-12-08 12:44 | PHARMACY PROGRESS NOTE ---
- Best Possible Medication History Admit Date and Time: 12/08/22 0416 Processed by: Pharmacy Medication History completed: Yes Patient Interview: Completed Secondary Source(s): Insurance records As the person ultimately responsible for medication therapy, providers are able to order a medication from an existing home medication list in [facility] via the "Reconcile Routine" prior to Confirmation of that medication by technical support assistant. Such practice is discouraged except when the physician, in their clinical judgment, deems that a medical need exists for a medication without regard to previous use.
[2022-12-08] MEDS: BUDESONIDE 0.5 MG/2 ML NEB INH SCH ×2 (13:40→19:04)
[2022-12-08] MEDS: FORMOTEROL FUMARATE NEB 20 MCG/2 ML INH SCH ×2 (13:40→19:05)
--- NOTE | 2022-12-08 18:01 | PROVIDER PROGRESS NOTE ---
Assessment/Plan - Problem List (1) Acute on chronic respiratory failure with hypoxemia Assessment/Plan: improving, still need 2-3L oxygen via nasal cannula Continue lasix Oxygen therapy (2) CHF exacerbation Qualifiers: Heart failure type: diastolic Qualified Code(s): I50.33 - Acute on chronic diastolic (congestive) heart failure Assessment/Plan: Strict I&O, daily weight, fluid restriction<1.5L, CHF education continue lasix , adjust dose till euvolumic monitoring renal function, electrolytes (3) CRISTINE treated with BiPAP Assessment/Plan: RT is consulted on BiPAP setting, use it at night (4) Chronic venous insufficiency Assessment/Plan: With venous statis ulcer on both LE, left is worse than right risk of infection On iv ceftriaxone (5) Type 2 diabetes mellitus Qualifiers: 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: without 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 use Diabetes mellitus complication detail: with other skin ulcer Qualified Code(s): E11.622 - Type 2 diabetes mellitus with other skin ulcer Assessment/Plan: Check A1C, DM diet ISS (6) UTI (urinary tract infection) Qualifiers: Urinary tract infection type: acute cystitis Assessment/Plan: Urine frequency and urgency were reported UA positive for UTI, Urine culture preliminary data shows G neg sherif on iv ceftriaxone - Current Meds Current Meds: Current Medications Generic Name Dose Route Start Last Admin Trade Name Freq PRN Reason Stop Dose Admin Acetaminophen 650 mg 12/08/22 04:15 12/08/22 05:42 Acetaminophen 325 Mg Tablet PO 650 mg Q4HR PRN Administration Pain 1 to 4, or Fever Budesonide 0.5 mg 12/08/22 07:00 12/08/22 13:40 Budesonide 0.5 Mg/2 Ml Neb INH 0.5 mg RTBID ALPA Administration Bupropion HCl 300 mg 12/08/22 09:00 12/08/22 08:36 Bupropion Xl 150 Mg Tablet PO 300 mg DAILY ALPA Administration Cholecalciferol 5,000 unit 12/08/22 09:00 12/08/22 08:36 Cholecalciferol 5,000 Unit Capsule PO 5,000 unit DAILY ALPA Administration Formoterol Fumarate 20 mcg 12/08/22 07:00 12/08/22 13:40 Formoterol Fumarate Neb 20 Mcg/2 Ml INH 20 mcg RTBID ALPA Administration Furosemide 40 mg 12/08/22 09:00 12/08/22 08:36 Furosemide 40 Mg/4 Ml Vial IVP 40 mg DAILY ALPA Administration Heparin Sodium (Porcine) 5,000 unit 12/08/22 09:00 12/08/22 08:41 Heparin 5,000 Unit/Ml Vial SUBQ 5,000 unit BID ALPA Administration Insulin Human Lispro 1 - 5 unit 12/08/22 08:00 12/08/22 14:18 Insulin Lispro 300 Unit/3 Ml Pen SUBQ Not Given 0800,1200,1700,2100 [facility] Protocol Sodium Chloride 10 ml 12/08/22 09:00 12/08/22 16:18 Sodium Chloride Flush 0.9% 10 Ml Syringe IVP 10 ml 0100,0900,1700 ALPA Administration - Lab Result Fish Bone Diagrams: 12/07/22 20:59 12/07/22 20:59 - Additional Planning My Orders: My Active Orders 12/08/22 10:59 BIPAP/CPAP - RT [RC] .q2 12/08/22 13:42 RT [Nebulizer/MDI Tx.] [RC] .BID&Q4PRN Subjective - Subjective Patient Reports: Feeling Better, Shortness of Breath Nursing Reports: Shortness of Breath Objective Vital Signs: Vital Signs - 24 hr 12/07/22 12/07/22 12/07/22 19:28 19:45 20:00 Temperature 36.6 C Heart Rate 96 87 88 Heart Rate [ Brachial] Respiratory 18 20 24 Rate Blood Pressure 122/106 H 158/92 H Blood Pressure [Right Brachial artery] O2 Saturation 75 L 94 94 If not protocol 5 5 : Oxygen Flow, liters/minute 12/07/22 12/07/22 12/07/22 20:30 20:41 21:00 Temperature Heart Rate 85 82 80 Heart Rate [ Brachial] Respiratory 23 28 H 21 Rate Blood Pressure 165/96 H 165/96 H 162/94 H Blood Pressure [Right Brachial artery] O2 Saturation 97 95 94 If not protocol 5 5 : Oxygen Flow, liters/minute 12/07/22 12/07/22 12/07/22 21:10 21:14 21:30 Temperature Heart Rate 85 79 Heart Rate [ Brachial] Respiratory 20 26 H Rate Blood Pressure 163/97 H Blood Pressure [Right Brachial artery] O2 Saturation 95 94 If not protocol 4 3.5 4 : Oxygen Flow, liters/minute 12/07/22 12/07/22 12/07/22 21:32 21:33 22:00 Temperature Heart Rate 81 Heart Rate [ Brachial] Respiratory 21 Rate Blood Pressure 162/82 H Blood Pressure [Right Brachial artery] O2 Saturation 84 L 99 95 If not protocol 4 4 4 : Oxygen Flow, liters/minute 12/07/22 12/07/22 12/08/22 23:40 23:47 00:00 Temperature Heart Rate 74 73 Heart Rate [ Brachial] Respiratory 18 20 18 Rate Blood Pressure 148/80 H 148/80 H Blood Pressure [Right Brachial artery] O2 Saturation 100 99 If not protocol 4 : Oxygen Flow, liters/minute 12/08/22 12/08/22 12/08/22 00:30 01:00 02:44 Temperature Heart Rate 81 77 64 Heart Rate [ Brachial] Respiratory 22 16 16 Rate Blood Pressure 119/82 H 125/78 135/82 H Blood Pressure [Right Brachial artery] O2 Saturation 95 93 98 If not protocol 5 3.5 : Oxygen Flow, liters/minute 12/08/22 12/08/22 12/08/22 04:43 05:24 05:58 Temperature 36.3 C L Heart Rate 66 Heart Rate [ 73 Brachial] Respiratory 18 20 Rate Blood Pressure 104/66 Blood Pressure 126/66 [Right Brachial artery] O2 Saturation 98 97 If not protocol 3.5 3.5 4 : Oxygen Flow, liters/minute 12/08/22 12/08/22 12/08/22 07:30 08:00 10:15 Temperature 36.2 C L Heart Rate 95 Heart Rate [ 75 Brachial] Respiratory 20 Rate Blood Pressure Blood Pressure 147/78 H [Right Brachial artery] O2 Saturation 95 If not protocol 4 4 8 : Oxygen Flow, liters/minute 12/08/22 12/08/22 12/08/22 12:00 13:43 13:52 Temperature Heart Rate 70 67 Heart Rate [ Brachial] Respiratory 24 Rate Blood Pressure Blood Pressure [Right Brachial artery] O2 Saturation If not protocol 4 : Oxygen Flow, liters/minute 12/08/22 15:44 Temperature 36.7 C Heart Rate Heart Rate [ 70 Brachial] Respiratory 24 Rate Blood Pressure Blood Pressure 113/60 [Right Brachial artery] O2 Saturation 94 If not protocol 2 : Oxygen Flow, liters/minute Oxygen O2 Source Nasal cannula Oxygen Flow Rate 5 I&O (Last 24 Hrs): Intake and Output Totals x24h 12/06/22 12/07/22 12/08/22 23:59 23:59 23:59 Intake Total 350 Output Total 1800 Balance -1450 General: Oriented x3 HEENT: Atraumatic, PERRLA, EOMI Neck: Supple, Other (unable to evaluate JVD due to body habitus) Neuro: Alert, Non Focal Cardiovascular: Regular rate Respiratory: Chest non-tender, No respiratory distress, Breath sounds nml Abdomen: Normal bowel sounds, No tenderness Genitourinary: Other (LE edema, skin hyperpigmentation, venous stasis ulcers with secretion) - Results Results: Laboratory Results WBC 8.7 x10^3/uL (4.8-10.8) 12/07/22 20:59 RBC 4.44 10^6/uL (4.20-5.40) 12/07/22 20:59 Hgb 11.9 g/dL (12.0-16.0) L 12/07/22 20:59 Hct 41.9 % (37.0-47.0) 12/07/22 20:59 MCV 94.4 fL (81.0-99.0) 12/07/22 20:59 MCH 26.8 pg (27.0-31.0) L 12/07/22 20:59 MCHC 28.4 g/dL (32.0-36.0) L 12/07/22 20:59 RDW 15.9 % (12.0-15.0) H 12/07/22 20:59 Plt Count 206 10^3/uL (130-450) 12/07/22 20:59 MPV 9.0 fL (7.9-10.8) 12/07/22 20:59 Neut # (Auto) 6.5 10^3/uL (1.5-6.6) 12/07/22 20:59 Lymph # (Auto) 1.3 10^3/uL (1.5-3.5) L 12/07/22 20:59 [place] # (Auto) 0.7 10^3/uL (0.0-1.0) 12/07/22 20:59 Eos # (Auto) 0.2 10^3/uL (0.0-0.7) 12/07/22 20:59 Baso # (Auto) 0.0 10^3/uL (0.0-0.1) 12/07/22 20:59 Absolute Nucleated RBC 0.00 x10^3/uL 12/07/22 20:59 Nucleated RBC % 0.0 /100WBC 12/07/22 20:59 Manual Slide Review Indicated 12/07/22 20:59 Platelet Estimate NORMAL (130-450,000) (NORMAL) 12/07/22 20:59 Platelet Morphology NORMAL APPEARANCE (NORMAL) 12/07/22 20:59 RBC Morph Micro Appear 1+ ANISOCYTOSIS (NORMAL) 1+ POLYCHROMASIA (NORMAL) 1+ HYPOCHROMASIA (NORMAL) 12/07/22 20:59 RBC Morph Micro Appear 1+ ANISOCYTOSIS (NORMAL) 1+ POLYCHROMASIA (NORMAL) 1+ HYPOCHROMASIA (NORMAL) 12/07/22 20:59 RBC Morph Micro Appear 1+ ANISOCYTOSIS (NORMAL) 1+ POLYCHROMASIA (NORMAL) 1+ HYPOCHROMASIA (NORMAL) 12/07/22 20:59 Sodium 140 mmol/L (135-145) 12/07/22 20:59 Potassium 4.1 mmol/L (3.5-5.0) 12/07/22 20:59 Chloride 96 mmol/L (101-111) L 12/07/22 20:59 Carbon Dioxide 36 mmol/L (21-32) H 12/07/22 20:59 Anion Gap 8.0 (6-13) 12/07/22 20:59 BUN 15 mg/dL (6-20) 12/07/22 20:59 Creatinine 0.6 mg/dL (0.4-1.0) 12/07/22 20:59 Estimated GFR (MDRD) 99 (>89) 12/07/22 20:59 Glucose 113 mg/dL (70-100) H 12/07/22 20:59 POC Whole Bld Glucose 97 mg/dL (70 - 100) 12/08/22 16:36 Calcium 8.3 mg/dL (8.5-10.3) L 12/07/22 20:59 Total Bilirubin 0.5 mg/dL (0.2-1.0) 12/07/22 20:59 AST 16 IU/L (10-42) 12/07/22 20:59 ALT 16 IU/L (10-60) 12/07/22 20:59 Alkaline Phosphatase 67 IU/L (42-121) 12/07/22 20:59 Troponin I High Sens 21.8 ng/L (2.3-14.8) H* 12/07/22 23:55 B-Natriuretic Peptide 123 pg/mL (5-100) H 12/07/22 20:59 Total Protein 6.9 g/dL (6.7-8.2) 12/07/22 20:59 Albumin 3.7 g/dL (3.2-5.5) 12/07/22 20:59 Globulin 3.2 g/dL (2.1-4.2) 12/07/22 20:59 Albumin/Globulin Ratio 1.2 (1.0-2.2) 12/07/22 20:59 Lipase 25 U/L (22-51) 12/07/22 20:59 Urine Color YELLOW 12/07/22 21:32 Urine Clarity CLOUDY (CLEAR) 12/07/22 21:32 Urine pH 5.5 PH (5.0-7.5) 12/07/22 21:32 Ur Specific [place] >=1.030 (1.002-1.030) H 12/07/22 21:32 Urine Protein 30 mg/dL (NEGATIVE) H 12/07/22 21:32 Urine Glucose (UA) NEGATIVE mg/dL (NEGATIVE) 12/07/22 21:32 Urine Ketones NEGATIVE mg/dL (NEGATIVE) 12/07/22 21:32 Urine Occult Blood MODERATE (NEGATIVE) H 12/07/22 21:32 Urine Nitrite POSITIVE (NEGATIVE) H 12/07/22 21:32 Urine Bilirubin NEGATIVE (NEGATIVE) 12/07/22 21:32 Urine Urobilinogen 0.2 (NORMAL) E.U./dL (NORMAL) 12/07/22 21:32 Ur Leukocyte Esterase SMALL (NEGATIVE) H 12/07/22 21:32 Urine RBC 11-25 /HPF (0-5) H 12/07/22 21:32 Urine WBC >25 /HPF (0-5) H 12/07/22 21:32 Ur Squamous Epith Cells FEW Squamous (<= Few) 12/07/22 21:32 Urine Bacteria Many /HPF (None Seen) H 12/07/22 21:32 Ur Microscopic Review INDICATED 12/07/22 21:32 Urine Culture Comments INDICATED 12/07/22 21:32 Nasal Adenovirus (PCR) NOT DETECTED 12/07/22 20:59 Nasal B. parapertussis DNA (PCR) NOT DETECTED 12/07/22 20:59 Nasal Coronavir 229E PCR NOT DETECTED 12/07/22 20:59 Nasal Coronavir HKU1 PCR NOT DETECTED 12/07/22 20:59 Nasal Coronavir NL63 PCR NOT DETECTED 12/07/22 20:59 Nasal Coronavir OC43 PCR NOT DETECTED 12/07/22 20:59 Nasal Enterovir/Rhinovir PCR NOT DETECTED 12/07/22 20:59 Nasal Influenza B PCR NOT DETECTED 12/07/22 20:59 Nasal Influenza A PCR NOT DETECTED 12/07/22 20:59 Nasal Parainfluen 1 PCR NOT DETECTED 12/07/22 20:59 Nasal Parainfluen 2 PCR NOT DETECTED 12/07/22 20:59 Nasal Parainfluen 3 PCR NOT DETECTED 12/07/22 20:59 Nasal Parainfluen 4 PCR NOT DETECTED 12/07/22 20:59 Nasal RSV (PCR) NOT DETECTED 12/07/22 20:59 Nasal B.pertussis DNA PCR NOT DETECTED 12/07/22 20:59 Nasal C.pneumoniae (PCR) NOT DETECTED 12/07/22 20:59 Tyler Human Metapneumo PCR NOT DETECTED 12/07/22 20:59 Nasal M.pneumoniae (PCR) NOT DETECTED 12/07/22 20:59 Nasal SARS-CoV-2 (PCR) NOT DETECTED 12/07/22 20:59 ABX Reporting Has patient been on IV antibiotics over the past 48 hours?: Yes Current Medications - Current Medications Current Medications: Active Medications Acetaminophen (Acetaminophen 325 Mg Tablet) 650 mg PO Q4HR PRN PRN Reason: Pain 1 to 4, or Fever Last Admin: 12/08/22 05:42 Dose: 650 mg Albuterol/Ipratropium (Ipratropium/Albuterol 3 Ml Neb) 3 ml INH Q4HR PRN PRN Reason: Shortness of Air/Wheezing Atorvastatin Calcium (Atorvastatin 10 Mg Tablet) 10 mg PO QPM ALPA Budesonide (Budesonide 0.5 Mg/2 Ml Neb) 0.5 mg INH RTBID ALPA Last Admin: 12/08/22 13:40 Dose: 0.5 mg Bupropion HCl (Bupropion Xl 150 Mg Tablet) 300 mg PO DAILY [facility] Last Admin: 12/08/22 08:36 Dose: 300 mg Cholecalciferol (Cholecalciferol 5,000 Unit Capsule) 5,000 unit PO DAILY [facility] Last Admin: 12/08/22 08:36 Dose: 5,000 unit Formoterol Fumarate (Formoterol Fumarate Neb 20 Mcg/2 Ml) 20 mcg INH RTBID [facility] Last Admin: 12/08/22 13:40 Dose: 20 mcg Furosemide (Furosemide 40 Mg/4 Ml Vial) 40 mg IVP DAILY [facility] Last Admin: 12/08/22 08:36 Dose: 40 mg Heparin Sodium (Porcine) (Heparin 5,000 Unit/Ml Vial) 5,000 unit SUBQ BID [facility] Last Admin: 12/08/22 08:41 Dose: 5,000 unit Ceftriaxone Sodium 2 gm/ (Sodium Chloride) 100 mls @ 200 mls/hr IV DAILY [facility] Insulin Human Lispro (Insulin Lispro 300 Unit/3 Ml Pen) 1 - 5 unit SUBQ 0800,1200,1700,2100 [facility]; Protocol Last Admin: 12/08/22 14:18 Dose: Not Given Ondansetron HCl (Ondansetron 4 Mg/2 Ml Vial) 4 mg IVP Q6HR PRN PRN Reason: Nausea / Vomiting Promethazine HCl (Promethazine 25 Mg/1 Ml Vial) 25 mg IM Q6HR PRN PRN Reason: Nausea / Vomiting Sodium Chloride (Sodium Chloride Flush 0.9% 10 Ml Syringe) 10 ml IVP PRN PRN PRN Reason: NEEDED PER PROVIDER ORDERS Sodium Chloride (Sodium Chloride Flush 0.9% 10 Ml Syringe) 10 ml IVP 0100,0900,1700 [facility] Last Admin: 12/08/22 16:18 Dose: 10 ml Fluticasone/Salmeterol [Advair 250-50 Diskus] 1 each IH BID 07/21/21 Furosemide [Lasix] 20 mg PO DAILY PRN 07/21/21 buPROPion HCL [Wellbutrin Xl] 300 mg PO DAILY 07/21/21 metFORMIN [Glucophage] 500 mg PO QDBREAKFAST 07/21/21 Rosuvastatin Calcium [Crestor] 1 tab PO DAILY 12/08/21 metFORMIN [Glucophage] 1,000 mg PO QPM 08/23/22 Multivitamin 1 tab PO DAILY 12/08/22
[2022-12-08] MEDS: cefTRIAXone 2 GM in SODIUM CHLORIDE 0.9% MINIBAG 100 ML IV SCH (20:08)
[2022-12-08] MEDS: ATORVASTATIN 10 MG TABLET PO SCH (20:08)
[2022-12-09] MEDS: SODIUM CHLORIDE FLUSH 0.9% 10 ML SYRINGE IVP SCH ×3 (00:05→17:45)
[2022-12-09] MEDS: IPRATROPIUM/ALBUTEROL 3 ML NEB INH PRN (06:25)
[2022-12-09] MEDS: FORMOTEROL FUMARATE NEB 20 MCG/2 ML INH SCH ×2 (06:25→17:58)
[2022-12-09] MEDS: BUDESONIDE 0.5 MG/2 ML NEB INH SCH ×2 (06:25→17:59)
--- NOTE | 2022-12-09 08:19 | PROVIDER PROGRESS NOTE ---
Assessment/Plan - Problem List (1) Acute on chronic respiratory failure with hypoxemia Assessment/Plan: Patient still need 2-3L oxygen at rest, likely this will become her new baseline, home O2 eval ordered, if oxygen needs is stable, may consider to discharge to home in 1-2 days (2) CHF exacerbation Qualifiers: Heart failure type: diastolic Qualified Code(s): I50.33 - Acute on chronic diastolic (congestive) heart failure Assessment/Plan: improved, less leg swollen, SOB has improved continue current dose lasix Low salt, 1.5L fluid restriction education provided by nutrition consult (3) CRISTINE treated with BiPAP Assessment/Plan: continue BiPAP treatment, RT is consulted (4) Chronic venous insufficiency Assessment/Plan: Stable, keep leg elevated as much as possible, consulted with CM regarding outpatient wound care arrangement (5) Type 2 diabetes mellitus Qualifiers: Diabetes mellitus snf insulin use: without dry room operator use Diabetes mellitus complication detail: with other skin ulcer Assessment/Plan: nutrition consult on DM diet hypoglycemia precaution ISS (6) UTI (urinary tract infection) Qualifiers: Urinary tract infection type: acute cystitis Assessment/Plan: Urine culture positive with E coli, [place] sensitive, Complete 3 days iv ceftr iaxone tomorrow - Current Meds Current Meds: Current Medications Generic Name Dose Route Start Last Admin Trade Name Freq PRN Reason Stop Dose Admin Acetaminophen 650 mg 12/08/22 04:15 12/08/22 05:42 Acetaminophen 325 Mg Tablet PO 650 mg Q4HR PRN Administration Pain 1 to 4, or Fever Albuterol/Ipratropium 3 ml 12/08/22 04:24 12/09/22 06:25 Ipratropium/Albuterol 3 Ml Neb INH 3 ml Q4HR PRN Administration Shortness of Air/Wheezing Atorvastatin Calcium 10 mg 12/08/22 21:00 12/08/22 20:08 Atorvastatin 10 Mg Tablet PO 10 mg QPM ALPA Administration Budesonide 0.5 mg 12/08/22 07:00 12/09/22 06:25 Budesonide 0.5 Mg/2 Ml Neb INH 0.5 mg RTBID ALPA Administration Bupropion HCl 300 mg 12/08/22 09:00 12/08/22 08:36 Bupropion Xl 150 Mg Tablet PO 300 mg DAILY ALPA Administration Cholecalciferol 5,000 unit 12/08/22 09:00 12/08/22 08:36 Cholecalciferol 5,000 Unit Capsule PO 5,000 unit DAILY ALPA Administration Formoterol Fumarate 20 mcg 12/08/22 07:00 12/09/22 06:25 Formoterol Fumarate Neb 20 Mcg/2 Ml INH 20 mcg RTBID ALPA Administration Furosemide 40 mg 12/08/22 09:00 12/08/22 08:36 Furosemide 40 Mg/4 Ml Vial IVP 40 mg DAILY ALPA Administration Heparin Sodium (Porcine) 5,000 unit 12/08/22 09:00 12/08/22 20:08 Heparin 5,000 Unit/Ml Vial SUBQ 5,000 unit BID ALPA Administration Ceftriaxone Sodium 2 gm/ 100 mls @ 200 mls/hr 12/08/22 21:00 12/08/22 20:45 Sodium Chloride IV Infused DAILY ALPA Infusion Insulin Human Lispro 1 - 5 unit 12/08/22 08:00 12/08/22 21:21 Insulin Lispro 300 Unit/3 Ml Pen SUBQ Not Given 0800,1200,1700,2100 [facility] Protocol Sodium Chloride 10 ml 12/08/22 04:15 12/08/22 20:46 Sodium Chloride Flush 0.9% 10 Ml Syringe IVP 10 ml PRN PRN Administration NEEDED PER PROVIDER ORDERS Sodium Chloride 10 ml 12/08/22 09:00 12/09/22 00:05 Sodium Chloride Flush 0.9% 10 Ml Syringe IVP 10 ml 0100,0900,1700 ALPA Administration - Lab Result Lab results reviewed: Yes Fish Bone Diagrams: 12/09/22 12:48 12/09/22 12:48 - Additional Planning Condition/Complexity: Improved My Orders: My Active Orders 12/08/22 10:59 BIPAP/CPAP - RT [RC] .q2 12/08/22 13:42 RT [Nebulizer/MDI Tx.] [RC] .BID&Q4PRN 12/09/22 04:48 HEMOGLOBIN A1c% [CHEM] DAILYLAB Plan Discussed with:: Patient, Family (son is at bedside) Time Spent: 15-30 minutes Subjective - Subjective Patient Reports: Feeling Better, No Complaints, Shortness of Breath (has improved.) Nursing Reports: Other (patient is on phone talking to people most of the time, can cause mild respiratory distress after being on phone so long) Objective Vital Signs: Vital Signs - 24 hr 12/08/22 12/08/22 12/08/22 10:15 12:00 13:43 Temperature Heart Rate 95 70 Heart Rate [ Brachial] Respiratory 24 Rate Blood Pressure [Left Brachial artery] Blood Pressure [Right Brachial artery] O2 Saturation If not protocol 8 4 : Oxygen Flow, liters/minute 12/08/22 12/08/22 12/08/22 13:52 15:00 15:44 Temperature 36.7 C Heart Rate 67 Heart Rate [ 70 Brachial] Respiratory 24 Rate Blood Pressure [Left Brachial artery] Blood Pressure 113/60 [Right Brachial artery] O2 Saturation 94 If not protocol 2 2 : Oxygen Flow, liters/minute 12/08/22 12/08/22 12/08/22 19:06 20:26 22:00 Temperature 36.7 C Heart Rate 74 73 Heart Rate [ 69 Brachial] Respiratory 20 20 Rate Blood Pressure [Left Brachial artery] Blood Pressure 129/59 L [Right Brachial artery] O2 Saturation 93 If not protocol 2 2 2 : Oxygen Flow, liters/minute 12/09/22 12/09/22 12/09/22 00:14 04:47 05:35 Temperature 36.9 C 36.9 C Heart Rate 74 Heart Rate [ 83 74 Brachial] Respiratory 20 20 Rate Blood Pressure 130/61 102/55 L [Left Brachial artery] Blood Pressure [Right Brachial artery] O2 Saturation 93 95 If not protocol 6 6 : Oxygen Flow, liters/minute 12/09/22 12/09/22 06:25 07:34 Temperature 37 C Heart Rate 72 Heart Rate [ 80 Brachial] Respiratory 18 16 Rate Blood Pressure 134/58 H [Left Brachial artery] Blood Pressure [Right Brachial artery] O2 Saturation 95 If not protocol 2 4 : Oxygen Flow, liters/minute Oxygen O2 Source Nasal cannula Oxygen Flow Rate 5 I&O (Last 24 Hrs): Intake and Output Totals x24h 12/07/22 12/08/22 12/09/22 23:59 23:59 23:59 Intake Total 630 Output Total 2225 100 Balance -1595 -100 General: Oriented x3, Mild distress, Other (SaO2 slowly trends down when off oxygen, can go down to 89% on room air within 2 min, can recover quickly after oxygen supplement.) HEENT: PERRLA, EOMI Neck: Supple Neuro: Alert, Non Focal, CN 2-12 Grossly Intact Cardiovascular: Regular rate Abdomen: Normal bowel sounds, No tenderness Extremities: Other (Leg edema slightly improved. ulcer appears better) - Results Results: Laboratory Results WBC 8.7 x10^3/uL (4.8-10.8) 12/07/22 20:59 RBC 4.44 10^6/uL (4.20-5.40) 12/07/22 20:59 Hgb 11.9 g/dL (12.0-16.0) L 12/07/22 20:59 Hct 41.9 % (37.0-47.0) 12/07/22 20:59 MCV 94.4 fL (81.0-99.0) 12/07/22 20: MCH 26.8 pg (27.0-31.0) L 12/07/22 20: MCHC 28.4 g/dL (32.0-36.0) L 12/07/22 20: RDW 15.9 % (12.0-15.0) H 12/07/22 20:59 Plt Count 206 10^3/uL (130-450) 12/07/22 20:59 MPV 9.0 fL (7.9-10.8) 12/07/22 20:59 Neut # (Auto) 6.5 10^3/uL (1.5-6.6) 12/07/22 20:59 Lymph # (Auto) 1.3 10^3/uL (1.5-3.5) L 12/07/22 20:59 [place] # (Auto) 0.7 10^3/uL (0.0-1.0) 12/07/22 20: Eos # (Auto) 0.2 10^3/uL (0.0-0.7) 12/07/22 20:59 Baso # (Auto) 0.0 10^3/uL (0.0-0.1) 12/07/22 20: Absolute Nucleated RBC 0.00 x10^3/uL 12/07/22 20: Nucleated RBC % 0.0 /100WBC 12/07/22 20:59 Manual Slide Review Indicated 12/07/22 20: Platelet Estimate NORMAL (130-450,000) (NORMAL) 12/07/22 20: Platelet Morphology NORMAL APPEARANCE (NORMAL) 12/07/22 20:59 RBC Morph Micro Appear 1+ ANISOCYTOSIS (NORMAL) 1+ POLYCHROMASIA (NORMAL) 1+ HYPOCHROMASIA (NORMAL) 12/07/22 20:59 RBC Morph Micro Appear 1+ ANISOCYTOSIS (NORMAL) 1+ POLYCHROMASIA (NORMAL) 1+ HYPOCHROMASIA (NORMAL) 12/07/22 20:59 RBC Morph Micro Appear 1+ ANISOCYTOSIS (NORMAL) 1+ POLYCHROMASIA (NORMAL) 1+ HYPOCHROMASIA (NORMAL) 12/07/22 20:59 Sodium 140 mmol/L (135-145) 12/07/22 20:59 Potassium 4.1 mmol/L (3.5-5.0) 12/07/22 20:59 Chloride 96 mmol/L (101-111) L 12/07/22 20:59 Carbon Dioxide 36 mmol/L (21-32) H 12/07/22 20:59 Anion Gap 8.0 (6-13) 12/07/22 20:59 BUN 15 mg/dL (6-20) 12/07/22 20:59 Creatinine 0.6 mg/dL (0.4-1.0) 12/07/22 20:59 Estimated GFR (MDRD) 99 (>89) 12/07/22 20:59 Glucose 113 mg/dL (70-100) H 12/07/22 20:59 POC Whole Bld Glucose 118 mg/dL (70 - 100) H 12/09/22 07:30 Calcium 8.3 mg/dL (8.5-10.3) L 12/07/22 20:59 Total Bilirubin 0.5 mg/dL (0.2-1.0) 12/07/22 20:59 AST 16 IU/L (10-42) 12/07/22 20:59 ALT 16 IU/L (10-60) 12/07/22 20:59 Alkaline Phosphatase 67 IU/L (42-121) 12/07/22 20:59 Troponin I High Sens 21.8 ng/L (2.3-14.8) H* 12/07/22 23:55 B-Natriuretic Peptide 123 pg/mL (5-100) H 12/07/22 20:59 Total Protein 6.9 g/dL (6.7-8.2) 12/07/22 20:59 Albumin 3.7 g/dL (3.2-5.5) 12/07/22 20:59 Globulin 3.2 g/dL (2.1-4.2) 12/07/22 20:59 Albumin/Globulin Ratio 1.2 (1.0-2.2) 12/07/22 20:59 Lipase 25 U/L (22-51) 12/07/22 20:59 Urine Color YELLOW 12/07/22 21:32 Urine Clarity CLOUDY (CLEAR) 12/07/22 21:32 Urine pH 5.5 PH (5.0-7.5) 12/07/22 21:32 Ur Specific [place] >=1.030 (1.002-1.030) H 12/07/22 21:32 Urine Protein 30 mg/dL (NEGATIVE) H 12/07/22 21:32 Urine Glucose (UA) NEGATIVE mg/dL (NEGATIVE) 12/07/22 21:32 Urine Ketones NEGATIVE mg/dL (NEGATIVE) 12/07/22 21:32 Urine Occult Blood MODERATE (NEGATIVE) H 12/07/22 21:32 Urine Nitrite POSITIVE (NEGATIVE) H 12/07/22 21:32 Urine Bilirubin NEGATIVE (NEGATIVE) 12/07/22 21:32 Urine Urobilinogen 0.2 (NORMAL) E.U./dL (NORMAL) 12/07/22 21:32 Ur Leukocyte Esterase SMALL (NEGATIVE) H 12/07/22 21:32 Urine RBC 11-25 /HPF (0-5) H 12/07/22 21:32 Urine WBC >25 /HPF (0-5) H 12/07/22 21:32 Ur Squamous Epith Cells FEW Squamous (<= Few) 12/07/22 21:32 Urine Bacteria Many /HPF (None Seen) H 12/07/22 21:32 Ur Microscopic Review INDICATED 12/07/22 21:32 Urine Culture Comments INDICATED 12/07/22 21:32 Nasal Adenovirus (PCR) NOT DETECTED 12/07/22 20:59 Nasal B. parapertussis DNA (PCR) NOT DETECTED 12/07/22 20:59 Nasal Coronavir 229E PCR NOT DETECTED 12/07/22 20:59 Nasal Coronavir HKU1 PCR NOT DETECTED 12/07/22 20:59 Nasal Coronavir NL63 PCR NOT DETECTED 12/07/22 20:59 Nasal Coronavir OC43 PCR NOT DETECTED 12/07/22 20:59 Nasal Enterovir/Rhinovir PCR NOT DETECTED 12/07/22 20:59 Nasal Influenza B PCR NOT DETECTED 12/07/22 20:59 Nasal Influenza A PCR NOT DETECTED 12/07/22 20:59 Nasal Parainfluen 1 PCR NOT DETECTED 12/07/22 20:59 Nasal Parainfluen 2 PCR NOT DETECTED 12/07/22 20:59 Nasal Parainfluen 3 PCR NOT DETECTED 12/07/22 20:59 Nasal Parainfluen 4 PCR NOT DETECTED 12/07/22 20:59 Nasal RSV (PCR) NOT DETECTED 12/07/22 20:59 Nasal B.pertussis DNA PCR NOT DETECTED 12/07/22 20:59 Nasal C.pneumoniae (PCR) NOT DETECTED 12/07/22 20:59 [place] Human Metapneumo PCR NOT DETECTED 12/07/22 20:59 Nasal M.pneumoniae (PCR) NOT DETECTED 12/07/22 20:59 Nasal SARS-CoV-2 (PCR) NOT DETECTED 12/07/22 20:59 ABX Reporting Has patient been on IV antibiotics over the past 48 hours?: Yes Current Medications - Current Medications Current Medications: Active Medications Acetaminophen (Acetaminophen 325 Mg Tablet) 650 mg PO Q4HR PRN PRN Reason: Pain 1 to 4, or Fever Last Admin: 12/09/22 20:51 Dose: 650 mg Albuterol/Ipratropium (Ipratropium/Albuterol 3 Ml Neb) 3 ml INH Q4HR PRN PRN Reason: Shortness of Air/Wheezing Last Admin: 12/09/22 06:25 Dose: 3 ml Atorvastatin Calcium (Atorvastatin 10 Mg Tablet) 10 mg PO QPM [facility] Last Admin: 12/09/22 20:52 Dose: 10 mg Budesonide (Budesonide 0.5 Mg/2 Ml Neb) 0.5 mg INH RTBID [facility] Last Admin: 12/09/22 17:59 Dose: 0.5 mg Bupropion HCl (Bupropion Xl 150 Mg Tablet) 300 mg PO DAILY [facility] Last Admin: 12/09/22 09:48 Dose: 300 mg Cholecalciferol (Cholecalciferol 5,000 Unit Capsule) 5,000 unit PO DAILY [facility] Last Admin: 12/09/22 09:46 Dose: 5,000 unit Formoterol Fumarate (Formoterol Fumarate Neb 20 Mcg/2 Ml) 20 mcg INH RTBID [facility] Last Admin: 12/09/22 17:58 Dose: 20 mcg Furosemide (Furosemide 40 Mg/4 Ml Vial) 40 mg IVP DAILY [facility] Last Admin: 12/09/22 09:46 Dose: 40 mg Heparin Sodium (Porcine) (Heparin 5,000 Unit/Ml Vial) 5,000 unit SUBQ BID [facility] Last Admin: 12/09/22 20:52 Dose: 5,000 unit Ceftriaxone Sodium 2 gm/ (Sodium Chloride) 100 mls @ 200 mls/hr IV DAILY [facility] Stop: 12/10/22 09:29 Last Infusion: 12/09/22 11:10 Dose: Infused Insulin Human Lispro (Insulin Lispro 300 Unit/3 Ml Pen) 1 - 5 unit SUBQ 0800,1200,1700,2100 [facility]; Protocol Last Admin: 12/09/22 20:52 Dose: Not Given Ondansetron HCl (Ondansetron 4 Mg/2 Ml Vial) 4 mg IVP Q6HR PRN PRN Reason: Nausea / Vomiting Promethazine HCl (Promethazine 25 Mg/1 Ml Vial) 25 mg IM Q6HR PRN PRN Reason: Nausea / Vomiting Sodium Chloride (Sodium Chloride Flush 0.9% 10 Ml Syringe) 10 ml IVP PRN PRN PRN Reason: NEEDED PER PROVIDER ORDERS Last Admin: 12/08/22 20:46 Dose: 10 ml Sodium Chloride (Sodium Chloride Flush 0.9% 10 Ml Syringe) 10 ml IVP 0100,0900,1700 [facility] Last Admin: 12/09/22 17:45 Dose: Not Given Fluticasone/Salmeterol [Advair 250-50 Diskus] 1 each IH BID 07/21/21 Furosemide [Lasix] 20 mg PO DAILY PRN 07/21/21 buPROPion HCL [Wellbutrin Xl] 300 mg PO DAILY 07/21/21 metFORMIN [Glucophage] 500 mg PO QDBREAKFAST 07/21/21 Rosuvastatin Calcium [Crestor] 1 tab PO DAILY 12/08/21 metFORMIN [Glucophage] 1,000 mg PO QPM 08/23/22 Multivitamin 1 tab PO DAILY 12/08/22
[2022-12-09 08:56] LABS: ESTIMATED AVERAGE GLUCOSE 148 mg/dL (70-100); HEMOGLOBIN A1c% 6.8 % (4.27-6.07)
[2022-12-09] MEDS: FUROSEMIDE 40 MG/4 ML VIAL IVP SCH (09:46)
[2022-12-09] MEDS: CHOLECALCIFEROL 5,000 UNIT CAPSULE PO SCH (09:46)
[2022-12-09] MEDS: cefTRIAXone 2 GM in SODIUM CHLORIDE 0.9% MINIBAG 100 ML IV SCH (09:46)
[2022-12-09] MEDS: HEPARIN 5,000 UNIT/ML VIAL SUBQ SCH ×2 (09:46→20:52)
[2022-12-09] MEDS: buPROPion XL 150 MG TABLET PO SCH (09:48)
[2022-12-09] MEDS: INSULIN LISPRO 300 UNIT/3 ML PEN SUBQ SCH ×4 (10:03→20:52)
[2022-12-09 13:09] LABS: BASOPHILS % (AUTO) 0.4 %; EOSINOPHILS # (AUTO) 0.1 10^3/uL (0.0-0.7); EOSINOPHILS % (AUTO) 1.2 %; HCT - HEMATOCRIT 39.6 % (37.0-47.0); HGB - HEMOGLOBIN 11.5 g/dL (12.0-16.0); LYMPHOCYTES # (AUTO) 1.1 10^3/uL (1.5-3.5); MEAN CORPUSCULAR HEMOGLOBIN 27.4 pg (27.0-31.0); MEAN CORPUSCULAR VOLUME 94.5 fL (81.0-99.0); MEAN PLATELET VOLUME 9.3 fL (7.9-10.8); MONOCYTES # (AUTO) 0.7 10^3/uL (0.0-1.0); MONOCYTES % (AUTO) 8.4 %; NEUTROPHILS # (AUTO) 6.5 10^3/uL (1.5-6.6); NEUTROPHILS % (AUTO) 76.6 %; PLT - PLATELET COUNT 195 10^3/uL (130-450); RED BLOOD COUNT 4.19 10^6/uL (4.20-5.40); RED CELL DISTRIBUTION WIDTH 15.5 % (12.0-15.0); WHITE BLOOD COUNT 8.5 x10^3/uL (4.8-10.8)
[2022-12-09 13:23] LABS: BUN - BLOOD UREA NITROGEN 14 mg/dL (6-20); CALCIUM 9.2 mg/dL (8.5-10.3); CARBON DIOXIDE - CO2 > 45 mmol/L (21-32); CHLORIDE 90 mmol/L (101-111); CREATININE 0.6 mg/dL (0.6-1.3); GFR - MDRD 99 (>89); GLUCOSE 124 mg/dL (74-104); POTASSIUM 3.9 mmol/L (3.5-4.5); SODIUM 139 mmol/L (135-145)
[2022-12-09] MEDS: ACETAMINOPHEN 325 MG TABLET PO PRN (20:51)
[2022-12-09] MEDS: ATORVASTATIN 10 MG TABLET PO SCH (20:52)
[2022-12-09] MEDS ORDERED: IBUPROFEN 400 MG TABLET PO ONE (20:57)
[2022-12-10 05:44] LABS: BASOPHILS % (AUTO) 0.5 %; EOSINOPHILS # (AUTO) 0.1 10^3/uL (0.0-0.7); EOSINOPHILS % (AUTO) 1.9 %; HCT - HEMATOCRIT 40.9 % (37.0-47.0); HGB - HEMOGLOBIN 11.6 g/dL (12.0-16.0); LYMPHOCYTES # (AUTO) 1.3 10^3/uL (1.5-3.5); LYMPHOCYTES % (AUTO) 20.5 %; MEAN CORPUSCULAR HEMOGLOBIN 26.9 pg (27.0-31.0); MEAN CORPUSCULAR HGB CONC 28.4 g/dL (32.0-36.0); MEAN CORPUSCULAR VOLUME 94.7 fL (81.0-99.0); MONOCYTES # (AUTO) 0.7 10^3/uL (0.0-1.0); MONOCYTES % (AUTO) 10.1 %; NEUTROPHILS # (AUTO) 4.3 10^3/uL (1.5-6.6); NEUTROPHILS % (AUTO) 66.7 %; PLT - PLATELET COUNT 178 10^3/uL (130-450); RED BLOOD COUNT 4.32 10^6/uL (4.20-5.40); RED CELL DISTRIBUTION WIDTH 15.3 % (12.0-15.0); WHITE BLOOD COUNT 6.4 x10^3/uL (4.8-10.8)
[2022-12-10 06:00] LABS: BUN - BLOOD UREA NITROGEN 13 mg/dL (6-20); CARBON DIOXIDE - CO2 > 45 mmol/L (21-32); CHLORIDE 92 mmol/L (101-111); CREATININE 0.4 mg/dL (0.6-1.3); GFR - MDRD 157 (>89); GLUCOSE 113 mg/dL (74-104); POTASSIUM 4.2 mmol/L (3.5-4.5); SODIUM 139 mmol/L (135-145)
[2022-12-10] MEDS: BUDESONIDE 0.5 MG/2 ML NEB INH SCH ×2 (06:19→19:16)
[2022-12-10] MEDS: IPRATROPIUM/ALBUTEROL 3 ML NEB INH PRN (06:19)
[2022-12-10] MEDS: FORMOTEROL FUMARATE NEB 20 MCG/2 ML INH SCH ×2 (06:19→19:16)
[2022-12-10] MEDS: SODIUM CHLORIDE FLUSH 0.9% 10 ML SYRINGE IVP SCH ×3 (06:23→17:51)
[2022-12-10] MEDS: cefTRIAXone 2 GM in SODIUM CHLORIDE 0.9% MINIBAG 100 ML IV SCH (08:58)
[2022-12-10] MEDS: CHOLECALCIFEROL 5,000 UNIT CAPSULE PO SCH (09:01)
[2022-12-10] MEDS: buPROPion XL 150 MG TABLET PO SCH (09:01)
[2022-12-10] MEDS: HEPARIN 5,000 UNIT/ML VIAL SUBQ SCH ×2 (09:04→20:26)
[2022-12-10] MEDS: FUROSEMIDE 40 MG/4 ML VIAL IVP SCH (09:06)
[2022-12-10] MEDS: INSULIN LISPRO 300 UNIT/3 ML PEN SUBQ SCH ×4 (09:06→20:26)
--- NOTE | 2022-12-10 16:18 | PROVIDER PROGRESS NOTE ---
Assessment/Plan - Problem List (1) Acute on chronic respiratory failure with hypoxemia Assessment/Plan: Patient still need 2-4L oxygen at rest, likely she will need new home O2 ordered Etiology was considered to be from CHF but the Echo shows a normal ejection fraction and no diastolic dysfunction was reported She has never been tested for COPD and has CO2 retention on labs, so she may have COPD or obesity hypoventilation causing CO2 retention. The admitting Hospitalist put her on Perforomist (substituting for Advair), as needed DuoNebs, and twice daily pulmicort neb. 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, at [facility], and has a Dx of some type of chronic lung disease Plan: I will order PFTs or will request to get PFT results and Pulm notes from [facility] I will order parameters to titrate down her FiO2, keeping sats 88% or above (2) CHF exacerbation Qualifiers: Heart failure type: diastolic Qualified Code(s): I50.33 - Acute on chronic diastolic (congestive) heart failure Assessment/Plan: Improved on iv Lasix, less leg swelling, SOB has improved Low salt, 1.5L fluid restriction education provided by nutrition aides teacher Echo shows a normal ejection fraction and no diastolic dysfunction was reported, but was not commented on at all, however (report reviewed) Plan: We will change her Lasix IV dose to p.o. Lasix BID starting tomorrow and assess if she is still diuresing Follow I's and O's, daily weights (3) Cor Pulmonale Assessment/Plan: The Echo done this admission shows RV dilated and IVC dilated, consistent with cor pulmonale. This is possibly secondary to her CRISTINE and her morbid obesity and from probable COPD (or her chronic lung disease) Plan: We will change her Lasix IV dose to p.o. Lasix BID tomorrow and assess if she is still diuresing Await PFTs or get PFT results and Pulm notes from [facility] (4) CRISTINE treated with BiPAP Assessment/Plan: At home she is on BiPAP bleeding in 4 L/min of O2. Since being here she has to bleed in 8 L/min of O2 Plan: Continue BiPAP treatment Continue to treat the underlying problems to wean down the FIO2 (5) Chronic venous insufficiency Assessment/Plan: Stable, consulted with provider regarding outpatient wound care arrangement Plan: Keep leg elevated as much as possible, (6) Type 2 diabetes mellitus Qualifiers: Diabetes mellitus jail insulin use: without jail use Diabetes mellitus complication detail: with other skin ulcer Assessment/Plan: Plan: nutrition consulted on DM diet hypoglycemia precaution SS Insul cont I will restart her Metformin (7) UTI (urinary tract infection) Qualifiers: Urinary tract infection type: acute cystitis Assessment/Plan: She did have right flank pain at admission and it is better but still there. No imaging was done of the abdomen/pelvis Urine culture positive with E coli, [place] sensitive Plan: She completed iv ceftriaxone today is 3 days of a 5-day course Will get abd/pelvis imaging (8) Morbid obesity, BMI 40-45 As per Hx. I suspect this is what caused her hypoventilation and cor pulmonale - Current Meds Current Meds: Current Medications Generic Name Dose Route Start Last Admin Trade Name Freq PRN Reason Stop Dose Admin Acetaminophen 650 mg 12/08/22 04:15 12/09/22 20:51 Acetaminophen 325 Mg Tablet PO 650 mg Q4HR PRN Administration Pain 1 to 4, or Fever Albuterol/Ipratropium 3 ml 12/08/22 04:24 12/10/22 06:19 Ipratropium/Albuterol 3 Ml Neb INH 3 ml Q4HR PRN Administration Shortness of Air/Wheezing Atorvastatin Calcium 10 mg 12/08/22 21:00 12/09/22 20:52 Atorvastatin 10 Mg Tablet PO 10 mg QPM ALPA Administration Budesonide 0.5 mg 12/08/22 07:00 12/10/22 06:19 Budesonide 0.5 Mg/2 Ml Neb INH 0.5 mg RTBID ALPA Administration Bupropion HCl 300 mg 12/08/22 09:00 12/10/22 09:01 Bupropion Xl 150 Mg Tablet PO 300 mg DAILY ALPA Administration Cholecalciferol 5,000 unit 12/08/22 09:00 12/10/22 09:01 Cholecalciferol 5,000 Unit Capsule PO 5,000 unit DAILY ALPA Administration Formoterol Fumarate 20 mcg 12/08/22 07:00 12/10/22 06:19 Formoterol Fumarate Neb 20 Mcg/2 Ml INH 20 mcg RTBID ALPA Administration Furosemide 40 mg 12/08/22 09:00 12/10/22 09:06 Furosemide 40 Mg/4 Ml Vial IVP 40 mg DAILY ALPA Administration Heparin Sodium (Porcine) 5,000 unit 12/08/22 09:00 12/10/22 09:04 Heparin 5,000 Unit/Ml Vial SUBQ 5,000 unit BID ALPA Administration Insulin Human Lispro 1 - 5 unit 12/08/22 08:00 12/10/22 12:02 Insulin Lispro 300 Unit/3 Ml Pen SUBQ Not Given 0800,1200,1700,2100 [facility] Protocol Sodium Chloride 10 ml 12/08/22 04:15 12/08/22 20:46 Sodium Chloride Flush 0.9% 10 Ml Syringe IVP 10 ml PRN PRN Administration NEEDED PER PROVIDER ORDERS Sodium Chloride 10 ml 12/08/22 09:00 12/10/22 12:02 Sodium Chloride Flush 0.9% 10 Ml Syringe IVP 10 ml 0100,0900,1700 [facility] Administration - Lab Result Fish Bone Diagrams: 12/10/22 05:35 12/10/22 05:35 - Additional Planning My Orders: My Active Orders 12/10/22 16:16 Miscellaenous Nursing Order [RC] QSHIFT Subjective - Subjective Patient Reports: Feeling Better (Less SNOW, less edema but has chronic edema with venous stasis changes) Objective Vital Signs: Vital Signs - 24 hr 12/09/22 12/09/22 12/09/22 19:10 19:39 21:00 Temperature Heart Rate 78 Heart Rate [ Brachial] Respiratory 18 Rate Blood Pressure [Left Brachial artery] Blood Pressure [Right Brachial artery] O2 Saturation 94 If not protocol 2 2 : Oxygen Flow, liters/minute 12/09/22 12/10/22 12/10/22 23:51 00:10 06:20 Temperature 36.8 C Heart Rate 79 65 Heart Rate [ 88 Brachial] Respiratory 24 18 Rate Blood Pressure [Left Brachial artery] Blood Pressure 130/59 L [Right Brachial artery] O2 Saturation 94 If not protocol 2 4 : Oxygen Flow, liters/minute 12/10/22 07:36 Temperature 36.9 C Heart Rate Heart Rate [ 62 Brachial] Respiratory 16 Rate Blood Pressure 110/58 L [Left Brachial artery] Blood Pressure [Right Brachial artery] O2 Saturation 95 If not protocol 4 : Oxygen Flow, liters/minute Oxygen O2 Source [With Activity] Nasal cannula O2 Source Nasal cannula Oxygen Flow Rate 5 I&O (Last 24 Hrs): Intake and Output Totals x24h 12/08/22 12/09/22 12/10/22 23:59 23:59 23:59 Intake Total 630 986 926 Output Total 2226 2222 1650 Balance -3174 -3842 -394 General: Alert, Oriented x3 HEENT: Mucous membr. moist/pink, Other (On O2 and. See) Neck: Supple Neuro: Alert, Non Focal Cardiovascular: Other (Pectus excavatum, irregular rhythm, systolic murmur at base) Abdomen: Normal bowel sounds, No tenderness, Other (Obese with pannus) Extremities: Other (Venous stasis changes of both shins, 2+ edema to the knees) - Results Results: Laboratory Results WBC 6.4 x10^3/uL (4.8-10.8) 12/10/22 05:35 RBC 4.32 10^6/uL (4.20-5.40) 12/10/22 05:35 Hgb 11.6 g/dL (12.0-16.0) L 12/10/22 05:35 Hct 40.9 % (37.0-47.0) 12/10/22 05:35 MCV 94.7 fL (81.0-99.0) 12/10/22 05:35 MCH 26.9 pg (27.0-31.0) L 12/10/22 05:35 MCHC 28.4 g/dL (32.0-36.0) L 12/10/22 05:35 RDW 15.3 % (12.0-15.0) H 12/10/22 05:35 Plt Count 178 10^3/uL (130-450) 12/10/22 05:35 MPV 9.0 fL (7.9-10.8) 12/10/22 05:35 Neut # (Auto) 4.3 10^3/uL (1.5-6.6) 12/10/22 05:35 Lymph # (Auto) 1.3 10^3/uL (1.5-3.5) L 12/10/22 05:35 [place] # (Auto) 0.7 10^3/uL (0.0-1.0) 12/10/22 05:35 Eos # (Auto) 0.1 10^3/uL (0.0-0.7) 12/10/22 05:35 Baso # (Auto) 0.0 10^3/uL (0.0-0.1) 12/10/22 05:35 Absolute Nucleated RBC 0.00 x10^3/uL 12/10/22 05:35 Nucleated RBC % 0.0 /100WBC 12/10/22 05:35 Manual Slide Review Indicated 12/07/22 20:59 Platelet Estimate NORMAL (130-450,000) (NORMAL) 12/07/22 20:59 Platelet Morphology NORMAL APPEARANCE (NORMAL) 12/07/22 20:59 RBC Morph Micro Appear 1+ ANISOCYTOSIS (NORMAL) 1+ POLYCHROMASIA (NORMAL) 1+ HYPOCHROMASIA (NORMAL) 12/07/22 20:59 RBC Morph Micro Appear 1+ ANISOCYTOSIS (NORMAL) 1+ POLYCHROMASIA (NORMAL) 1+ HYPOCHROMASIA (NORMAL) 12/07/22 20:59 RBC Morph Micro Appear 1+ ANISOCYTOSIS (NORMAL) 1+ POLYCHROMASIA (NORMAL) 1+ HYPOCHROMASIA (NORMAL) 12/07/22 20:59 Sodium 139 mmol/L (135-145) 12/10/22 05:35 Potassium 4.2 mmol/L (3.5-4.5) 12/10/22 05:35 Chloride 92 mmol/L (101-111) L 12/10/22 05:35 Carbon Dioxide > 45 mmol/L (21-32) H* 12/10/22 05:35 Anion Gap TNP 12/10/22 05:35 BUN 13 mg/dL (6-20) 12/10/22 05:35 Creatinine 0.4 mg/dL (0.6-1.3) L 12/10/22 05:35 Estimated GFR (MDRD) 157 (>89) 12/10/22 05:35 Glucose 113 mg/dL (74-104) H 12/10/22 05:35 POC Whole Bld Glucose 119 mg/dL (70 - 100) H 12/10/22 11:20 Estimat Average Glucose 148 mg/dL (70-100) H 12/09/22 04:48 Hemoglobin A1c % 6.8 % (4.27-6.07) H 12/09/22 04:48 Calcium 9.0 mg/dL (8.5-10.3) 12/10/22 05:35 Total Bilirubin 0.5 mg/dL (0.2-1.0) 12/07/22 20:59 AST 16 IU/L (10-42) 12/07/22 20:59 ALT 16 IU/L (10-60) 12/07/22 20:59 Alkaline Phosphatase 67 IU/L (42-121) 12/07/22 20:59 Troponin I High Sens 21.8 ng/L (2.3-14.8) H* 12/07/22 23:55 B-Natriuretic Peptide 123 pg/mL (5-100) H 12/07/22 20:59 Total Protein 6.9 g/dL (6.7-8.2) 12/07/22 20:59 Albumin 3.7 g/dL (3.2-5.5) 12/07/22 20:59 Globulin 3.2 g/dL (2.1-4.2) 12/07/22 20:59 Albumin/Globulin Ratio 1.2 (1.0-2.2) 12/07/22 20:59 Lipase 25 U/L (22-51) 12/07/22 20:59 Urine Color YELLOW 12/07/22 21:32 Urine Clarity CLOUDY (CLEAR) 12/07/22 21:32 Urine pH 5.5 PH (5.0-7.5) 12/07/22 21:32 Ur Specific [place] >=1.030 (1.002-1.030) H 12/07/22 21:32 Urine Protein 30 mg/dL (NEGATIVE) H 12/07/22 21:32 Urine Glucose (UA) NEGATIVE mg/dL (NEGATIVE) 12/07/22 21:32 Urine Ketones NEGATIVE mg/dL (NEGATIVE) 12/07/22 21:32 Urine Occult Blood MODERATE (NEGATIVE) H 12/07/22 21:32 Urine Nitrite POSITIVE (NEGATIVE) H 12/07/22 21:32 Urine Bilirubin NEGATIVE (NEGATIVE) 12/07/22 21:32 Urine Urobilinogen 0.2 (NORMAL) E.U./dL (NORMAL) 12/07/22 21:32 Ur Leukocyte Esterase SMALL (NEGATIVE) H 12/07/22 21:32 Urine RBC 11-25 /HPF (0-5) H 12/07/22 21:32 Urine WBC >25 /HPF (0-5) H 12/07/22 21:32 Ur Squamous Epith Cells FEW Squamous (<= Few) 12/07/22 21:32 Urine Bacteria Many /HPF (None Seen) H 12/07/22 21:32 Ur Microscopic Review INDICATED 12/07/22 21:32 Urine Culture Comments INDICATED 12/07/22 21:32 Nasal Adenovirus (PCR) NOT DETECTED 12/07/22 20:59 Nasal B. parapertussis DNA (PCR) NOT DETECTED 12/07/22 20:59 Nasal Coronavir 229E PCR NOT DETECTED 12/07/22 20:59 Nasal Coronavir HKU1 PCR NOT DETECTED 12/07/22 20:59 Nasal Coronavir NL63 PCR NOT DETECTED 12/07/22 20:59 Nasal Coronavir OC43 PCR NOT DETECTED 12/07/22 20:59 Nasal Enterovir/Rhinovir PCR NOT DETECTED 12/07/22 20:59 Nasal Influenza B PCR NOT DETECTED 12/07/22 20:59 Nasal Influenza A PCR NOT DETECTED 12/07/22 20:59 Nasal Parainfluen 1 PCR NOT DETECTED 12/07/22 20:59 Nasal Parainfluen 2 PCR NOT DETECTED 12/07/22 20:59 Nasal Parainfluen 3 PCR NOT DETECTED 12/07/22 20:59 Nasal Parainfluen 4 PCR NOT DETECTED 12/07/22 20:59 Nasal RSV (PCR) NOT DETECTED 12/07/22 20:59 Nasal B.pertussis DNA PCR NOT DETECTED 12/07/22 20:59 Nasal C.pneumoniae (PCR) NOT DETECTED 12/07/22 20:59 Tyler Human Metapneumo PCR NOT DETECTED 12/07/22 20:59 Nasal M.pneumoniae (PCR) NOT DETECTED 12/07/22 20:59 Nasal SARS-CoV-2 (PCR) NOT DETECTED 12/07/22 20:59
[2022-12-10] MEDS: ATORVASTATIN 10 MG TABLET PO SCH (20:26)
[2022-12-10] MEDS ORDERED: metFORMIN 500 MG TABLET PO SCH (21:00)
--- NOTE | 2022-12-11 00:04 | CT Report ---
PROCEDURE: ABDOMEN/PELVIS W INDICATIONS: R flank pain, has (+) urine culture CONTRAST: Omni 300 100ml TECHNIQUE: After the administration of intravenous contrast, 5 mm thick sections acquired from the diaphragms to the symphysis. 5 mm thick coronal and sagittal reformats were acquired. For radiation dose reducti on, the following was used: automated exposure control, adjustment of mA and/or kV according to damien ent size. COMPARISON: CT 12/07/2022 FINDINGS: Image quality: Suboptimal due to acquisition limitations and motion artifact. Lung bases and heart: Pectus excavatum. Cardiomegaly. Small right pleural effusion. Liver: No solid mass. Gallbladder and biliary tree: Surgically absent. No biliary dilation, accounting for post-cholecystec patsy state. Spleen: Innumerable hypoattenuating lesions, largest measuring 1.5 cm. Pancreas: No pancreatic ductal dilation. Adrenals: No adrenal nodule. Kidneys and ureters: No hydronephrosis. No renal cystic lesion which requires follow up. No solid mas s. 1.1 cm nonobstructing stone in the inferior calyx of the left kidney. Symmetric enhancement. Bowel and peritoneum: No bowel distension. No pathologic free fluid. Diverticulosis without evidence of diverticulitis. Lymph nodes: No central or retroperitoneal adenopathy. Vessels: No infrarenal aortic aneurysm. PELVIS Reproductive organs: Unremarkable. Bladder: No abnormal wall thickening, accounting for underdistension. Pelvic lymph nodes: No pelvic adenopathy by size criteria. Bones: No aggressive osseous abnormality. Other: No significant ventral or inguinal hernia. IMPRESSION: Suboptimal due to position limitations and motion. Symmetric enhancement of the kidneys, without hydronephrosis. Innumerable hypoattenuating splenic lesions. Given the presence of abnormal axillary lymph nodes on t he comparison CT, findings are concerning for lymphoma. Sarcoidosis less likely. 1.1 cm left-sided nonobstructing nephrolithiasis. Reviewed by: Shashank Medina on 12/11/2022 12:03 AM PDT Approved by: Shashank Medina on 12/11/2022 12:03 AM PDT Station ID: [id number]
[2022-12-11] MEDS: SODIUM CHLORIDE FLUSH 0.9% 10 ML SYRINGE IVP SCH ×3 (01:22→21:20)
[2022-12-11] MEDS ORDERED: iohexoL-300 100 ML VIAL IVP ONE (03:48)
[2022-12-11 05:48] LABS: BASOPHILS % (AUTO) 0.5 %; EOSINOPHILS # (AUTO) 0.1 10^3/uL (0.0-0.7); HGB - HEMOGLOBIN 11.2 g/dL (12.0-16.0); LYMPHOCYTES # (AUTO) 1.5 10^3/uL (1.5-3.5); LYMPHOCYTES % (AUTO) 23.2 %; MEAN CORPUSCULAR HEMOGLOBIN 26.5 pg (27.0-31.0); MEAN CORPUSCULAR HGB CONC 28.7 g/dL (32.0-36.0); MEAN CORPUSCULAR VOLUME 92.4 fL (81.0-99.0); MEAN PLATELET VOLUME 9.1 fL (7.9-10.8); MONOCYTES # (AUTO) 0.6 10^3/uL (0.0-1.0); MONOCYTES % (AUTO) 9.3 %; NEUTROPHILS # (AUTO) 4.3 10^3/uL (1.5-6.6); NEUTROPHILS % (AUTO) 64.8 %; PLT - PLATELET COUNT 177 10^3/uL (130-450); RED BLOOD COUNT 4.22 10^6/uL (4.20-5.40); RED CELL DISTRIBUTION WIDTH 15.4 % (12.0-15.0); WHITE BLOOD COUNT 6.6 x10^3/uL (4.8-10.8)
[2022-12-11 05:49] LABS: PLATELET ESTIMATE, MANUAL NORMAL (130-450,000) (NORMAL); PLATELET MORPHOLOGY NORMAL APPEARANCE (NORMAL); RBC MORPHOLOGY (MULTIPLE) 1+ HYPOCHROMASIA (NORMAL); SLIDE REVIEW? Indicated; WBC MORPHOLOGY (MULTIPLE) NORMAL APPEARANCE (NORMAL)
[2022-12-11 06:11] LABS: CALCIUM 9.5 mg/dL (8.5-10.3); CREATININE 0.4 mg/dL (0.6-1.3); POTASSIUM 4.1 mmol/L (3.5-4.5)
[2022-12-11] MEDS: FUROSEMIDE 20 MG TABLET PO SCH ×2 (06:28→14:05)
[2022-12-11] MEDS: BUDESONIDE 0.5 MG/2 ML NEB INH SCH ×2 (07:22→19:36)
[2022-12-11] MEDS: FORMOTEROL FUMARATE NEB 20 MCG/2 ML INH SCH ×2 (07:22→19:36)
--- NOTE | 2022-12-11 07:58 | PROVIDER PROGRESS NOTE ---
Assessment/Plan - Problem List (1) Acute on chronic respiratory failure with hypoxemia Assessment/Plan: This morning O2 sat dropped to 89% on 2 L O2 per n.c., she needed to be placed on 4 L. Patient still needs 2-4L oxygen at rest, likely she will need new home O2 ordered Etiology was considered to be from CHF but the Echo shows a normal ejection fraction and no diastolic dysfunction was reported She has never been tested for COPD and has CO2 retention on labs, so I suspect she has COPD or obesity hypoventilation causing CO2 retention. Yesterday when I met her she told me she does have underlying lung disease but does not know the diagnosis, goes to see [facility]. Tong at [facility]. The admitting Hospitalist put her on Perforomist (substituting for Advair), prn DuoNeb, and twice daily Pulmicort neb. Plan: I ordered PFTs and requested to get PFT results and Pulm notes from [facility] (today is Tuesday and our LEAN MANUFACTURING SPECIALIST did not speak to a person and medical records of [facility], just left a message) I ordered parameters to titrate down her FiO2, keeping sats 88% or above Plan to have her do an oximetry walk test on the day of [facility] (2) Splenic lesion Assessment/Plan: She underwent CT abdomen to evaluate for pathology related to her UTI. A nonobstructive kidney stone was found. Incidental findings were multiple splenic hypoattenuating lesions. These could be cysts or tumors or mets I discussed the above with patient. She remembers being told she had these as incidental findings once when she underwent a abdomen CT while at [facility] Plan: Will request records from [facility] (3) Cor Pulmonale Assessment/Plan: The Echo done this admission shows RV dilated and IVC dilated, consistent with cor pulmonale. This is possibly secondary to her CRISTINE and her morbid obesity and from probable COPD (or her chronic lung disease) Plan: Today she is to start p.o. Lasix BID and assess if she is still diuresing. I ordered PFTs to be done here (the RT who does PFTs is not here today), and I have requested to get PFT results and Pulm records from [facility] (4) CHF exacerbation Qualifiers: Heart failure type: diastolic Qualified Code(s): I50.33 - Acute on chronic diastolic (congestive) heart failure Assessment/Plan: Improved on iv Lasix, less leg swelling, SOB has improved Low salt, 1.5L fluid restriction education provided by community nutrition educator Echo shows a normal ejection fraction and no diastolic dysfunction was reported, but was not commented on at all, however (report reviewed) Plan: Today she is to start p.o. Lasix BID and assess if she is still diuresing. Follow I's and O's, daily weights. If she has a positive fluid balance then I will resume IV Lasix tomorrow (5) CRISTINE treated with BiPAP Assessment/Plan: At home she is on BiPAP bleeding in 4 L/min of O2. Since being here she has to bleed in 8 L/min of O2 Plan: Continue BiPAP treatment Continue to treat the underlying problems to wean down the FIO2 (6) E coli UTI (urinary tract infection) Assessment/Plan: Urine culture positive with E coli, [place] sensitive She did have right flank pain at admission and it is better but still there. No imaging was done of the abdomen/pelvis at admission She underwent CT abdomen pelvis last night which showed a nonobstructing stone and no other urinary problems Plan: She is on iv ceftriaxone, and today is day 4 of a planned 5-day course (7) Type 2 diabetes mellitus Qualifiers: Diabetes mellitus chief clinical officer insulin use: without chief clinical officer use Diabetes mellitus complication detail: with other skin ulcer Assessment/Plan: Plan: nutrition consulted on DM diet hypoglycemia precaution SS Insul cont I will restart her Metformin at 24 hours after last night's CT w/ contrast was given (8) Chronic venous insufficiency Assessment/Plan: Stable, consulted with provider regarding outpatient wound care arrangement Plan: Keep leg elevated as much as possible, (9) Morbid obesity, BMI 40-45 As per Hx. I suspect this is what caused her hypoventilation and cor pulmonale - Current Meds Current Meds: Current Medications Generic Name Dose Route Start Last Admin Trade Name Freq PRN Reason Stop Dose Admin Acetaminophen 650 mg 12/08/22 04:15 12/09/22 20:51 Acetaminophen 325 Mg Tablet PO 650 mg Q4HR PRN Administration Pain 1 to 4, or Fever Albuterol/Ipratropium 3 ml 12/08/22 04:24 12/10/22 06:19 Ipratropium/Albuterol 3 Ml Neb INH 3 ml Q4HR PRN Administration Shortness of Air/Wheezing Atorvastatin Calcium 10 mg 12/08/22 21:00 12/10/22 20:26 Atorvastatin 10 Mg Tablet PO 10 mg QPM ALPA Administration Budesonide 0.5 mg 12/08/22 07:00 12/11/22 07:22 Budesonide 0.5 Mg/2 Ml Neb INH 0.5 mg RTBID ALPA Administration Bupropion HCl 300 mg 12/08/22 09:00 12/10/22 09:01 Bupropion Xl 150 Mg Tablet PO 300 mg DAILY ALPA Administration Cholecalciferol 5,000 unit 12/08/22 09:00 12/10/22 09:01 Cholecalciferol 5,000 Unit Capsule PO 5,000 unit DAILY ALPA Administration Formoterol Fumarate 20 mcg 12/08/22 07:00 12/11/22 07:22 Formoterol Fumarate Neb 20 Mcg/2 Ml INH 20 mcg RTBID ALPA Administration Furosemide 20 mg 12/11/22 06:00 12/11/22 06:28 Furosemide 20 Mg Tablet PO 20 mg BIDDIURETIC ALPA Administration Heparin Sodium (Porcine) 5,000 unit 12/08/22 09:00 12/10/22 20:26 Heparin 5,000 Unit/Ml Vial SUBQ 5,000 unit BID ALPA Administration Insulin Human Lispro 1 - 5 unit 12/08/22 08:00 12/10/22 20:26 Insulin Lispro 300 Unit/3 Ml Pen SUBQ 1 unit 0800,1200,1700,2100 ALPA Administration Protocol Sodium Chloride 10 ml 12/08/22 04:15 12/08/22 20:46 Sodium Chloride Flush 0.9% 10 Ml Syringe IVP 10 ml PRN PRN Administration NEEDED PER PROVIDER ORDERS Sodium Chloride 10 ml 12/08/22 09:00 12/11/22 01:22 Sodium Chloride Flush 0.9% 10 Ml Syringe IVP 10 ml 0100,0900,1700 ALPA Administration - Lab Result Fish Bone Diagrams: 12/11/22 05:20 12/11/22 05:20 - Additional Planning My Orders: My Active Orders 12/10/22 16:16 Miscellaenous Nursing Order [RC] QSMTFT 12/10/22 16:31 Miscellaenous Nursing Order [RC] QSMTFT 12/11/22 06:00 Furosemide [Lasix] 20 mg PO BIDDIURETIC 12/11/22 08:00 PFT - Baseline [RC] ONCE Multivitamin [Theragran] 1 tab PO DAILYWM 12/11/22 09:00 cefTRIAXone [Rocephin] 1 gm Sodium Chloride 0.9% Minibag [Normal Saline 0.9% Minibag] 100 ml IV DAILY Subjective - Subjective Patient Reports: Feeling Better, Shortness of Breath (Still needeing O2 suppl, this a.m. sat 89% on 2L and needed to have FIO2 incr to 4L) Objective Vital Signs: Vital Signs - 24 hr 12/10/22 12/10/22 12/11/22 16:33 19:17 00:50 Temperature 37.2 C 36.9 C Heart Rate 70 Heart Rate [ 66 66 Brachial] Respiratory 18 18 16 Rate Blood Pressure 146/87 H [Left Brachial artery] Blood Pressure 143/74 H [Right Brachial artery] O2 Saturation 95 93 If not protocol 3 2 2 : Oxygen Flow, liters/minute 12/11/22 07:23 Temperature Heart Rate 76 Heart Rate [ Brachial] Respiratory 18 Rate Blood Pressure [Left Brachial artery] Blood Pressure [Right Brachial artery] O2 Saturation If not protocol 2 : Oxygen Flow, liters/minute Oxygen O2 Source [With Activity] Nasal cannula O2 Source Nasal cannula Oxygen Flow Rate 5 I&O (Last 24 Hrs): Intake and Output Totals x24h 12/09/22 12/10/22 12/11/22 23:59 23:59 23:59 Intake Total 986 1416 Output Total 2225 2500 300 Balance -1239 -1084 -300 General: Alert, Oriented x3, No acute distress HEENT: Mucous membr. moist/pink, Other (wearing O2 n.c.) Neck: Supple, No JVD Neuro: Alert, Non Focal Cardiovascular: Regular rate, No murmurs Respiratory: Rales (at both bases) Abdomen: Soft Extremities: No clubbing, No tenderness/swelling, Other (2+ edema and purple venous stasis changes of shins) - Results Results: Laboratory Results WBC 6.6 x10^3/uL (4.8-10.8) 12/11/22 05:20 RBC 4.22 10^6/uL (4.20-5.40) 12/11/22 05:20 Hgb 11.2 g/dL (12.0-16.0) L 12/11/22 05:20 Hct 39.0 % (37.0-47.0) 12/11/22 05:20 MCV 92.4 fL (81.0-99.0) 12/11/22 05:20 MCH 26.5 pg (27.0-31.0) L 12/11/22 05:20 MCHC 28.7 g/dL (32.0-36.0) L 12/11/22 05:20 RDW 15.4 % (12.0-15.0) H 12/11/22 05:20 Plt Count 177 10^3/uL (130-450) 12/11/22 05:20 MPV 9.1 fL (7.9-10.8) 12/11/22 05:20 Neut # (Auto) 4.3 10^3/uL (1.5-6.6) 12/11/22 05:20 Lymph # (Auto) 1.5 10^3/uL (1.5-3.5) 12/11/22 05:20 Gray # (Auto) 0.6 10^3/uL (0.0-1.0) 12/11/22 05:20 Eos # (Auto) 0.1 10^3/uL (0.0-0.7) 12/11/22 05:20 Baso # (Auto) 0.0 10^3/uL (0.0-0.1) 12/11/22 05:20 Absolute Nucleated RBC 0.00 x10^3/uL 12/11/22 05:20 Nucleated RBC % 0.0 /100WBC 12/11/22 05:20 Manual Slide Review Indicated 12/11/22 05:20 WBC Morphology NORMAL APPEARANCE (NORMAL) 12/11/22 05:20 Platelet Estimate NORMAL (130-450,000) (NORMAL) 12/11/22 05:20 Platelet Morphology NORMAL APPEARANCE (NORMAL) 12/11/22 05:20 RBC Morph Micro Appear 1+ HYPOCHROMASIA (NORMAL) 12/11/22 05:20 Sodium 138 mmol/L (135-145) 12/11/22 05:20 Potassium 4.1 mmol/L (3.5-4.5) 12/11/22 05:20 Chloride 93 mmol/L (101-111) L 12/11/22 05:20 Carbon Dioxide 44 mmol/L (21-32) H* 12/11/22 05:20 Anion Gap 1.0 (6-13) L 12/11/22 05:20 BUN 13 mg/dL (6-20) 12/11/22 05:20 Creatinine 0.4 mg/dL (0.6-1.3) L 12/11/22 05:20 Estimated GFR (MDRD) 157 (>89) 12/11/22 05:20 Glucose 116 mg/dL (74-104) H 12/11/22 05:20 POC Whole Bld Glucose 157 mg/dL (70 - 100) H 12/10/22 20:01 Estimat Average Glucose 148 mg/dL (70-100) H 12/09/22 04:48 Hemoglobin A1c % 6.8 % (4.27-6.07) H 12/09/22 04:48 Calcium 9.5 mg/dL (8.5-10.3) 12/11/22 05:20 Total Bilirubin 0.5 mg/dL (0.2-1.0) 12/07/22 20:59 AST 16 IU/L (10-42) 12/07/22 20:59 ALT 16 IU/L (10-60) 12/07/22 20:59 Alkaline Phosphatase 67 IU/L (42-121) 12/07/22 20:59 Troponin I High Sens 21.8 ng/L (2.3-14.8) H* 12/07/22 23:55 B-Natriuretic Peptide 123 pg/mL (5-100) H 12/07/22 20:59 Total Protein 6.9 g/dL (6.7-8.2) 12/07/22 20:59 Albumin 3.7 g/dL (3.2-5.5) 12/07/22 20:59 Globulin 3.2 g/dL (2.1-4.2) 12/07/22 20:59 Albumin/Globulin Ratio 1.2 (1.0-2.2) 12/07/22 20:59 Lipase 25 U/L (22-51) 12/07/22 20:59 Urine Color YELLOW 12/07/22 21:32 Urine Clarity CLOUDY (CLEAR) 12/07/22 21:32 Urine pH 5.5 PH (5.0-7.5) 12/07/22 21:32 Ur Specific [place] >=1.030 (1.002-1.030) H 12/07/22 21:32 Urine Protein 30 mg/dL (NEGATIVE) H 12/07/22 21:32 Urine Glucose (UA) NEGATIVE mg/dL (NEGATIVE) 12/07/22 21:32 Urine Ketones NEGATIVE mg/dL (NEGATIVE) 12/07/22 21:32 Urine Occult Blood MODERATE (NEGATIVE) H 12/07/22 21:32 Urine Nitrite POSITIVE (NEGATIVE) H 12/07/22 21:32 Urine Bilirubin NEGATIVE (NEGATIVE) 12/07/22 21:32 Urine Urobilinogen 0.2 (NORMAL) E.U./dL (NORMAL) 12/07/22 21:32 Ur Leukocyte Esterase SMALL (NEGATIVE) H 12/07/22 21:32 Urine RBC 11-25 /HPF (0-5) H 12/07/22 21:32 Urine WBC >25 /HPF (0-5) H 12/07/22 21:32 Ur Squamous Epith Cells FEW Squamous (<= Few) 12/07/22 21:32 Urine Bacteria Many /HPF (None Seen) H 12/07/22 21:32 Ur Microscopic Review INDICATED 12/07/22 21:32 Urine Culture Comments INDICATED 12/07/22 21:32 Nasal Adenovirus (PCR) NOT DETECTED 12/07/22 20:59 Nasal B. parapertussis DNA (PCR) NOT DETECTED 12/07/22 20:59 Nasal Coronavir 229E PCR NOT DETECTED 12/07/22 20:59 Nasal Coronavir HKU1 PCR NOT DETECTED 12/07/22 20:59 Nasal Coronavir NL63 PCR NOT DETECTED 12/07/22 20:59 Nasal Coronavir OC43 PCR NOT DETECTED 12/07/22 20:59 Nasal Enterovir/Rhinovir PCR NOT DETECTED 12/07/22 20:59 Nasal Influenza B PCR NOT DETECTED 12/07/22 20:59 Nasal Influenza A PCR NOT DETECTED 12/07/22 20:59 Nasal Parainfluen 1 PCR NOT DETECTED 12/07/22 20:59 Nasal Parainfluen 2 PCR NOT DETECTED 12/07/22 20:59 Nasal Parainfluen 3 PCR NOT DETECTED 12/07/22 20:59 Nasal Parainfluen 4 PCR NOT DETECTED 12/07/22 20:59 Nasal RSV (PCR) NOT DETECTED 12/07/22 20:59 Nasal B.pertussis DNA PCR NOT DETECTED 12/07/22 20:59 Nasal C.pneumoniae (PCR) NOT DETECTED 12/07/22 20:59 Tyler Human Metapneumo PCR NOT DETECTED 12/07/22 20:59 Nasal M.pneumoniae (PCR) NOT DETECTED 12/07/22 20:59 Nasal SARS-CoV-2 (PCR) NOT DETECTED 12/07/22 20:59
[2022-12-11] MEDS ORDERED: metFORMIN 500 MG TABLET PO SCH (08:00)
[2022-12-11] MEDS: cefTRIAXone 1 GM in SODIUM CHLORIDE 0.9% MINIBAG 100 ML IV SCH (08:52)
[2022-12-11] MEDS: CHOLECALCIFEROL 5,000 UNIT CAPSULE PO SCH (08:53)
[2022-12-11] MEDS: buPROPion XL 150 MG TABLET PO SCH (08:53)
[2022-12-11] MEDS: MULTIVITAMIN TABLET PO SCH (08:53)
[2022-12-11] MEDS: HEPARIN 5,000 UNIT/ML VIAL SUBQ SCH ×2 (08:54→21:20)
[2022-12-11] MEDS: INSULIN LISPRO 300 UNIT/3 ML PEN SUBQ SCH ×4 (08:57→21:20)
[2022-12-11] MEDS ORDERED: FUROSEMIDE 20 MG TABLET PO SCH (09:00)
[2022-12-11] MEDS ORDERED: MIN OIL/DIMETHICON/COCONUT OIL 92 GM TUBE TOP PRN (10:18)
[2022-12-11] MEDS: ATORVASTATIN 10 MG TABLET PO SCH (21:20)
[2022-12-12] MEDS: FUROSEMIDE 20 MG TABLET PO SCH (05:37)
[2022-12-12] MEDS: SODIUM CHLORIDE FLUSH 0.9% 10 ML SYRINGE IVP SCH ×2 (05:37→09:58)
[2022-12-12 06:15] LABS: BASOPHILS % (AUTO) 0.7 %; EOSINOPHILS # (AUTO) 0.2 10^3/uL (0.0-0.7); EOSINOPHILS % (AUTO) 3.1 %; HGB - HEMOGLOBIN 11.8 g/dL (12.0-16.0); LYMPHOCYTES # (AUTO) 1.4 10^3/uL (1.5-3.5); LYMPHOCYTES % (AUTO) 22.1 %; MEAN CORPUSCULAR HEMOGLOBIN 26.3 pg (27.0-31.0); MEAN CORPUSCULAR HGB CONC 28.8 g/dL (32.0-36.0); MEAN CORPUSCULAR VOLUME 91.3 fL (81.0-99.0); MEAN PLATELET VOLUME 9.1 fL (7.9-10.8); MONOCYTES # (AUTO) 0.6 10^3/uL (0.0-1.0); MONOCYTES % (AUTO) 9.6 %; NEUTROPHILS # (AUTO) 3.9 10^3/uL (1.5-6.6); NEUTROPHILS % (AUTO) 64.3 %; PLT - PLATELET COUNT 194 10^3/uL (130-450); RED BLOOD COUNT 4.49 10^6/uL (4.20-5.40); RED CELL DISTRIBUTION WIDTH 15.2 % (12.0-15.0); WHITE BLOOD COUNT 6.1 x10^3/uL (4.8-10.8)
[2022-12-12 06:34] LABS: CALCIUM 9.5 mg/dL (8.5-10.3); CREATININE 0.5 mg/dL (0.6-1.3); POTASSIUM 4.5 mmol/L (3.5-4.5)
[2022-12-12] MEDS: FORMOTEROL FUMARATE NEB 20 MCG/2 ML INH SCH (07:26)
[2022-12-12] MEDS: BUDESONIDE 0.5 MG/2 ML NEB INH SCH (07:26)
[2022-12-12 09:00] VITALS: BP 122/57; O2SAT 88
[2022-12-12] MEDS: cefTRIAXone 1 GM in SODIUM CHLORIDE 0.9% MINIBAG 100 ML IV SCH (09:55)
[2022-12-12] MEDS: INSULIN LISPRO 300 UNIT/3 ML PEN SUBQ SCH ×2 (09:56→12:45)
[2022-12-12] MEDS: buPROPion XL 150 MG TABLET PO SCH (09:57)
[2022-12-12] MEDS: MULTIVITAMIN TABLET PO SCH (09:57)
[2022-12-12] MEDS: CHOLECALCIFEROL 5,000 UNIT CAPSULE PO SCH (09:57)
[2022-12-12] MEDS: HEPARIN 5,000 UNIT/ML VIAL SUBQ SCH (09:58)
--- NOTE | 2022-12-12 11:25 | Discharge Plan ---
Discharge Plan Problem Reviewed?: Yes Disposition: Home, Self Care Condition: Stable Prescriptions: Rosuvastatin Calcium [Crestor] 1 tab PO QPM #30 tab cephALEXin [Keflex] 500 mg PO QID #8 cap Diet: Diabetic (Low sodium diet also!) Activity Restrictions: Activity as Tolerated Shower Restrictions: No Driving Restrictions: No Assistance Devices: Walker Health Concerns: You were hospitalized to manage shortness of breath with worsening hypoxia. We found you to have pulmonary edema from DIASTOLIC heart failure, due to not taking your diuretic, on top of having Cor Pulmonale (Right heart failure) caused by asthma and obesity-hypoventilation syndrome. You received IV diuretics. This has resulted in improvement and decreased need for oxygen. You were tested to check what your oxygen settings should now be at home: You need no supplemental oxygen at rest, you need 1-2 L/minute of O2 with activity, and 3-4 L/min bled into your BiPAP machine, during sleep. We also found you to have a urinary tract infection. You received 4 out of a planned 5-day course of IV antibiotics. When the abdomen and pelvis CT imaging was done, we found that you have a kidney stone which is not obstructing urine outflow, and we also found multiple "lesions" in your spleen as an incidental finding. You are being discharged home today and advised to please resume all your usual pre-hospital medications. You and I spoke about being more compliant with your diuretic pill. Reminder that your cholesterol pill showed be taken at bedtime, not i the daytime. You will get several more tablets of an antibiotic, to finish treating the urinary tract infection. That prescription was electronically sent to your [facility] pharmacy in [place]. Please see your primary care provider in the next 5-10 days for a hospital follow-up visit. Please discuss the multiple lesions found on your spleen, since more work-up may be needed for those. A summary of this hospital stay will be going to your PCP. Plan of Treatment: As above. Care Goals: Improvement in symptoms and stabilization are the goals. Assessment: The patient understands and is agreeable with the plan. Additional Instructions or Follow Up instructions: If you have new or worsening symptoms, call your PCP or your founder and chief technical officer for advice, or come to the ER. No Smoking: If you smoke, Please STOP! Call for help. Follow-up with: Jodi Caldera ARNP [Primary Care Provider] -
--- NOTE | 2022-12-12 11:36 | DISCHARGE SUMMARY ---
Discharge Summary Admit Date: 12/08/22 Discharge Date: 12/12/22 Discharging Provider: Eleanor Lveine MD Primary Care Provider: Jodi Moore NP Code Status: Attempt Resuscitation Condition at Discharge: Stable Discharge Disposition: 01 Home, Self Care - HPI History of Present Illness: 72F c CRISTINE on Bipap with nighttime O2 support who p/w dyspnea with exertion for the past couple of days. Patient noted concurrently worsening swelling in both LE and orthopnea. She states right sided posterior chest pain/flank pain is present. No fever. No sore throat. No n/v/d. No dysuria. She mentions not being compliant with her Lasix for her leg swelling. She has not been told of having "heart failure", but she was told that she has right sided heart disease. ER eval showed O2 desaturation of 75% on room air, anasarca with pitting edema to her upper thighs and pulmonary edema on CXR. - HOSPITAL COURSE Hospital Course: (1) Acute on chronic respiratory failure with hypoxemia Etiology was considered to be from CHF. Her Echo showed a normal ejection fraction, therefore diastolic dysfunction was presumed. She was diuresed and her oxygen needs dropped. On the day of discharge, she had an oximetry walk test and the current O2 recommendations are for her to use: no supplemental oxygen is needed at rest, 12 L/min O2 with any activity, and 34 L/min O2 bled into her BiPAP machine at night and whenever she sleeps. (2) Acute on chronic diastolic heart failure She was put on fluid restriction and iv BID Lasix. With this she had less leg swelling, and her SOB improved. Her Echo showed a normal ejection fraction, therefore diastolic dysfunction was presumed. A low salt and 1.5L/day fluid restriction education was provided by swine nutritionist. Records were requested and received from [facility]. At her Brass Finisher's, Dr. Tong, visit from July 2022, he stated that "she is reluctant to take her diuretic". She admitted this to me on her last day of this hospitalization. She was instructed as to the importance of being compliant with her diuretic. (3) CRISTINE treated with BiPAP At home she was on BiPAP bleeding in 3-4 L/min of O2. When she was first admitted, she needed to have a setting of bleeding in 8 L/min of O2. By the time of discharge, the settings could go back to her baseline. (4) Asthma Patient had no wheezing. She was kept on her usual bronchodilators, but via neb ulized form, while she was here. (5) Cor Pulmonale The Echo done this admission shows RV dilated and IVC dilated, consistent with cor pulmonale. This is secondary to her obesity-hypoventilation and CRISTINE on top of this diastolic heart failure exacerbation. I was able to review records from her Brass Finisher, Dr. Tong, from the July 2022 visit, which stated that in the past she has never exhibited cor pulmonale on Echoes, therefore this cor pulmonale is a new finding. (6) E coli UTI (urinary tract infection) She did report urinary frequency and urgency and had some flank pain and her admission U/A was abnormal. Urine culture grew E coli. She completed 4 out of 5 days of empiric IV ceftriaxone. She was discharged to take 1 more day of oral Keflex 500 mg p.o. 4 times daily. No imaging was done of the abdomen/pelvis at admission, so she had a CT abdomen pelvis after admission which showed a non-o bstructing kidney stone and multiple hypoattenuating splenic lesions. (7) Type 2 diabetes mellitus She got sliding scale insulin coverage for fingerstick checks. I restarted her Metformin at [address] w/ contrast was done (8) Chronic venous insufficiency Chronic and compliance with her diuretic should help this. (9) Splenic lesion She underwent CT abdomen to evaluate for pathology related to her UTI. Incidental findings were multiple splenic hypoattenuating lesions. These could be cysts or tumors or mets. When I discussed these with patient, she remembered being told she had these as incidental findings previously when she had abdomen CT while at [facility]. PCP to please see that she has had a W/U for these. (10) Hx of DVT x2 She has heterozygous factor V Leiden abnormality. She does not need to be on chronic anticoagulation therefore. (11) Morbid obesity, BMI 40-45 As per Hx. - ALLERGIES Allergies/Adverse Reactions: Allergies Allergy/AdvReac Type Severity Reaction Status Date / Time No Known Drug Allergies Allergy Verified 12/07/22 19:46 - MEDICATIONS Home Medications: Ambulatory Orders Medication Instructions Recorded Confirmed Fluticasone/Salmeterol [Advair 1 each IH BID 07/21/21 12/08/22 250-50 Diskus] Furosemide [Lasix] 20 mg PO DAILY PRN 07/21/21 12/08/22 buPROPion HCL [Wellbutrin Xl] 300 mg PO DAILY 07/21/21 12/08/22 metFORMIN [Glucophage] 500 mg PO QDBREAKFAST 07/21/21 12/08/22 metFORMIN [Glucophage] 1,000 mg PO QPM 08/23/22 12/08/22 Multivitamin 1 tab PO DAILY 12/08/22 12/08/22 Albuterol Sulf [Ventolin Hfa 2 puffs PO Q6H PRN 12/10/22 12/10/22 Inhaler] Rosuvastatin Calcium [Crestor] 1 tab PO QPM #30 tab 12/12/22 cephALEXin [Keflex] 500 mg PO QID #8 cap 12/12/22 - PHYSICAL EXAM AT DISCHARGE General Appearance: positive: No acute distress, Alert Eyes Bilateral: positive: Other (L eye is a lazy eye, drifts laterally) ENT: positive: ENT inspection nml, No signs of dehydration Neck: positive: Nml inspection, No JVD Respiratory: positive: No respiratory distress, Breath sounds nml Cardiovascular: positive: Regular rate & rhythm, No murmur Abdomen: positive: Non-tender, Nml bowel sounds, No distention Skin: positive: Warm, Dry Extremities: positive: Non-tender, Other (Trace pedal edema, venous stasis changes of the shins) Neurologic/Psychiatric: positive: Oriented x3, Motor nml - LABS Result Diagrams: 12/12/22 06:02 12/12/22 06:02 - DIAGNOSTIC IMAGING Diagnostic Imaging Results: Final report reviewed - FOLLOW UP Follow Up: Recommended to see her PCP in the next 5 to 10 days. - TIME SPENT Time Spent in Discharge (Minutes): 45
[2022-12-12] MEDS ORDERED: cephALEXin 250 MG CAPSULE PO SCH (12:00)
== END 2022-12-12 13:35 | disposition home or self-care (01) | DRG 189 ==
LOC: ED 19:24 → MS2 12-08 04:16
PROVIDERS: ADMIT Internal Medicine; ATTEND Internal Medicine
DX: R06.00 Dyspnea, unspecified (principal); R06.01 Orthopnea; R06.02 Shortness of breath; I89.0 Lymphedema, not elsewhere classified; R09.02 Hypoxemia; J96.21 Acute and chronic respiratory failure with hypoxia; T50.1X6A Underdosing of loop [high-ceiling] diuretics, initial encounter; R30.0 Dysuria; R35.0 Frequency of micturition; R07.9 Chest pain, unspecified; R10.9 Unspecified abdominal pain; M79.89 Other specified soft tissue disorders; I10 Essential (primary) hypertension; I50.33 Acute on chronic diastolic (congestive) heart failure; I49.1 Atrial premature depolarization; J90 Pleural effusion, not elsewhere classified; J81.0 Acute pulmonary edema; R07.81 Pleurodynia; Z20.822 Contact with and (suspected) exposure to COVID-19; E66.2 Morbid (severe) obesity with alveolar hypoventilation; D68.2 Hereditary deficiency of other clotting factors; Z68.41 Body mass index [BMI] 40.0-44.9, adult; Z91.128 Patient's intentional underdosing of medication regimen for other reason; N30.00 Acute cystitis without hematuria; J45.909 Unspecified asthma, uncomplicated; I27.81 Cor pulmonale (chronic); B96.20 Unspecified Escherichia coli [E. coli] as the cause of diseases classified elsewhere; N20.0 Calculus of kidney; E11.9 Type 2 diabetes mellitus without complications; I87.2 Venous insufficiency (chronic) (peripheral); D73.89 Other diseases of spleen; I11.0 Hypertensive heart disease with heart failure; F32.A Depression, unspecified; R53.83 Other fatigue; E11.622 Type 2 diabetes mellitus with other skin ulcer; Z79.4 Long term (current) use of insulin; Z79.84 Long term (current) use of oral hypoglycemic drugs; Z79.899 Other long term (current) drug therapy; Z86.718 Personal history of other venous thrombosis and embolism; Z91.148 Patient's other noncompliance with medication regimen for other reason
CPT/HCPCS: 36415; 71275; 74177; 80048; 80053; 81001; 83036; 83690; 83880; 84484; 85025; 87077; 87086; 87181; 87633; 93005; 93308; 94640; 94660; 94761; 96365; 96375; 97161; 97530; 99285; A6250; A9270; J7626; Q9967; 81003

== ENCOUNTER 2023-06-21 12:37 | Outpatient (CLI) | payer MEDICARE, OTHER ==
[2023-06-21 17:55] LABS: BASOPHILS # (AUTO) 0.1 10^3/uL (0.0-0.1); BASOPHILS % (AUTO) 0.6 %; EOSINOPHILS # (AUTO) 0.2 10^3/uL (0.0-0.7); EOSINOPHILS % (AUTO) 1.9 %; HCT - HEMATOCRIT 40.8 % (37.0-47.0); HGB - HEMOGLOBIN 12.3 g/dL (12.0-16.0); LYMPHOCYTES # (AUTO) 2.4 10^3/uL (1.5-3.5); LYMPHOCYTES % (AUTO) 26.8 %; MEAN CORPUSCULAR HEMOGLOBIN 28.3 pg (27.0-31.0); MEAN CORPUSCULAR HGB CONC 30.1 g/dL (32.0-36.0); MEAN CORPUSCULAR VOLUME 93.8 fL (81.0-99.0); MEAN PLATELET VOLUME 10.5 fL (7.9-10.8); MONOCYTES # (AUTO) 0.7 10^3/uL (0.0-1.0); MONOCYTES % (AUTO) 7.8 %; NEUTROPHILS # (AUTO) 5.6 10^3/uL (1.5-6.6); NEUTROPHILS % (AUTO) 62.6 %; PLT - PLATELET COUNT 230 10^3/uL (130-450); RED BLOOD COUNT 4.35 10^6/uL (4.20-5.40); RED CELL DISTRIBUTION WIDTH 13.9 % (12.0-15.0); WHITE BLOOD COUNT 8.9 x10^3/uL (4.8-10.8)
[2023-06-21 19:01] LABS: ALBUMIN 4.4 g/dL (3.2-5.5); ALBUMIN/GLOBULIN RATIO 1.3 (1.0-2.2); ALKALINE PHOSPHATASE 72 IU/L (42-121); ALT ALANINE AMINOTRANSFERASE 13 IU/L (10-60); AST ASPARTATE AMINOTRANSFERASE 13 IU/L (10-42); BILIRUBIN,TOTAL 0.6 mg/dL (0.2-1.0); BUN - BLOOD UREA NITROGEN 19 mg/dL (6-20); CALCIUM 9.9 mg/dL (8.5-10.3); CARBON DIOXIDE - CO2 33 mmol/L (21-32); CHLORIDE 100 mmol/L (101-111); CHOL/HDL RATIO 2.6 (<4.4); CHOLESTEROL 148 mg/dL; CREATININE 0.6 mg/dL (0.6-1.3); GFR - MDRD 99 (>89); GLUCOSE 106 mg/dL (74-104); HDL CHOLESTEROL 56 mg/dL; LDL CHOLESTEROL,CALCULATED 77 mg/dL; LDL/HDL RATIO 1.4 (<4.4); POTASSIUM 4.5 mmol/L (3.5-4.5); SODIUM 138 mmol/L (135-145); TOTAL PROTEIN 7.7 g/dL (6.4-8.9); TRIGLYCERIDES 73 mg/dL (48-352); VLDL CHOLESTEROL 15 mg/dL
[2023-06-21 22:34] LABS: ESTIMATED AVERAGE GLUCOSE 126 mg/dL (70-100)
== END 2023-06-21 12:38 | disposition home or self-care (01) ==
LOC: LAB.N 12:37
PROVIDERS: ATTEND Nurse Practitioner Family
DX: E11.65 Type 2 diabetes mellitus with hyperglycemia (principal); E78.5 Hyperlipidemia, unspecified; Z79.899 Other long term (current) drug therapy
CPT/HCPCS: 36415; 80053; 80061; 83036; 83721; 85025

== ENCOUNTER 2023-09-15 23:23 | Outpatient (CLI) | payer MEDICARE, OTHER | END 2023-09-15 23:59 | disposition EMS.NT | LOC: EMS 23:23 | DX: Z03.89 Encounter for observation for other suspected diseases and conditions ruled out (principal) ==